=== PATIENT | female | born 1985 | race Two or more races ===

== ENCOUNTER 2018-02-10 19:17 | Inpatient (IN) | payer SELFPAY ==
[~2018-02-10] VITALS: Ht 154.9 cm; Wt 56.7 kg
[2018-02-10] MEDS ORDERED: ONDANSETRON PF 4 MG/2 ML VIAL. IV ONE (20:15)
[2018-02-10] MEDS ORDERED: IV NORMAL SALINE 1000ML BAG 1,000 ML IV ONE (20:15)
[2018-02-10] MEDS ORDERED: MORPHINE SULFATE 4 MG/ML DISP.SYRIN. IV ONE ×2 (20:15→21:30)
[2018-02-10 20:23] LABS: BASO % 0 % (0-3); EOS % 0 % (0-3); HEMATOCRIT 43.7 % (36.0-47.0); LYMPH # 1.2 x10^3/uL (1.0-4.8); LYMPH % 8 % (24-48); MEAN CORPUSCULAR HEMOGLOBIN 30 pg (25-35); MEAN CORPUSCULAR HGB CONC 34 g/dL (31-37); MEAN CORPUSCULAR VOLUME 87 fL (79-100); MONO # 0.8 x10^3/uL (0.0-1.1); MONO % 6 % (0-9); NEUT # 12.2 x10^3uL (1.8-7.7); NEUT % 86 % (31-73); PLATELET COUNT 173 x10^3/uL (140-400); RED BLOOD COUNT 5.01 x10^6/uL (3.50-5.40); RED CELL DISTRIBUTION WIDTH 13.6 % (11.5-14.5); WHITE BLOOD COUNT 14.2 x10^3/uL (4.0-11.0)
[2018-02-10 20:23] LABS: BILIRUBIN,URINE SMALL (NEG); CLARITY,URINE CLOUDY; COLOR,URINE AMBER; NITRITE,URINE POSITIVE (NEG); PH,URINE 6.5; PROTEIN,URINE 30 mg/dL (NEG-TRACE)
[2018-02-10 20:35] LABS: CALCIUM 9.5 mg/dL (8.5-10.1); CREATININE 0.8 mg/dL (0.6-1.0); GFR 83.1; POTASSIUM 3.8 mmol/L (3.5-5.1)
[2018-02-10 20:35] LABS: BACTERIA,URINE MANY /HPF (0-FEW); RBC,URINE 0 /HPF (0-2); SQUAMOUS EPITHELIAL CELL,UR MANY /LPF; WBC,URINE >40 /HPF (0-4)
[2018-02-10 20:41] LABS: ALBUMIN 4.5 g/dL (3.4-5.0); ALBUMIN/GLOBULIN RATIO 1.1 (1.0-1.7); TOTAL BILIRUBIN 1.2 mg/dL (0.2-1.0); TOTAL PROTEIN 8.7 g/dL (6.4-8.2)
[2018-02-10 20:59] LABS: % BANDS 4 % (0-9); % LYMPHS 12 % (24-48); % MONOS 5 % (0-10); % SEGS 79 % (35-66); PLT ESTIMATE ADEQUATE (ADEQUATE)
--- NOTE | 2018-02-10 21:09 | RAD ---
CT scan of the abdomen and pelvis without contrast 02/10/2018 CLINICAL HISTORY: Right flank pain for 4 days. TECHNIQUE: Unenhanced, contiguous, 2 mm axial sections were obtained through the abdomen and pelvis. One or more of the following individualized dose reduction techniques were utilized for this study: 1. Automated exposure control. 2. Adjustment of the mA and/or kV according to patient size. 3. Use of iterative reconstruction technique. FINDINGS: Comparison study is dated 07/14/2015. Images through the lung bases are within normal limits. The liver, spleen, pancreas, and adrenal glands are within normal limits. A 2 mm nonobstructing calculus is seen involving the lower pole of the right kidney. No focal abnormality of the left kidney is seen. There is no evidence of obstruction of either collecting system. Increased density is seen within the fat surrounding the inferior aspect of the right kidney. This is a nonspecific finding. It can be seen with recently relieved obstruction of the right collecting system or could also be seen with pyelonephritis. Clinical correlation is recommended. No abnormal fluid collection is seen to suggest evidence of an abscess. The abdominal aorta tapers normally. The gallbladder is well-distended. No free fluid or free air is seen within the abdomen. There is no evidence of bowel obstruction. Air and stool seen throughout the colon. The appendix is well-visualized and is within normal limits. Images through the pelvis demonstrate the urinary bladder distended with urine. No adnexal mass is seen. A small amount of free fluid is seen within the pelvis. The osseous structures are unchanged. IMPRESSION: 1. Increased density is seen within the fat adjacent to the inferior aspect of the right kidney. This is a nonspecific finding. It could be seen with recently relieved obstruction of the right collecting system or could also be seen with pyelonephritis. Clinical correlation is recommended. 2. Small amount of free fluid is seen within the pelvis. Electronically signed by: Tera Ramirez MD (02/10/2018 9:05 PM) [facility]
[2018-02-10] MEDS ORDERED: KETOROLAC 30 MG/ML VIAL. IV ONE (22:15)
[2018-02-10] MEDS ORDERED: ONDANSETRON PF 4 MG/2 ML VIAL. IV PRN (22:30)
--- NOTE | 2018-02-10 23:02 | PHYS DOC ---
Past Medical History Past Medical History: No Pertinent History Past Surgical History: No Surgical History Alcohol Use: None Drug Use: None Adult General Chief Complaint Chief Complaint: ABDOMINAL PAIN HPI HPI Patient is a 32 year old splenic female who presents to the emergency Department today with complaints of right lower quadrant abdominal pain with increased urinary frequency nausea, vomiting, and diarrhea for the last 4 days. She also reports pain with urination. She denies any fever, back pain, or injury. She states that her pain increases when she bears weight on her right leg. Patient also reports having blood in her urine for the last 4 days. She denies any history of kidney stones. Currently the patient rates her pain as a 10 out of 10 on the pain scale, states she has not taken anything for her pain. Her last menstrual period was on January 24, 2018, she denies any known . Patient denies any vaginal itching or odor. She states she has had some light white vaginal discharge recently. She denies any medical history or surgical history. She states that she is not allergic to any medications. Review of Systems Review of Systems Constitutional: Denies fever or chills reports malaise [] HENT: Denies nasal congestion, or sore throat [] Respiratory: Denies cough, wheezing, or shortness of breath [] Cardiovascular: Denies chest pain GI: Denies bloody stools; reports right lower quadrant abdominal pain, nausea, vomiting, or diarrhea for the last 4 days, states she has had at least 15 episodes of vomiting and diarrhea and last 24 hours [] : Reports dysuria and hematuria with increased urinary frequency and right flank pain, reports light amount of white vaginal discharge denies any odor or vaginal itching [] Musculoskeletal: Denies joint pain, reports right lower back pain and body aches [] Integument: Denies rash or skin lesions [] Neurologic: Denies headache, focal weakness or sensory changes [] All other systems were reviewed and found to be within normal limits, except as documented in this note. Current Medications Current Medications Current Medications Medications (Trade) Dose Ordered Sig/Tootie Start Time Stop Time Status Last Admin Dose Admin Ceftriaxone Sodium 50 ml @ 100 mls/hr 1X ONCE 02/10/18 21:30 02/10/18 21:59 DC 02/10/18 21:47 100 MLS/HR Ketorolac Tromethamine (Toradol) 30 mg 1X ONCE 02/10/18 22:15 02/10/18 22:16 DC 02/10/18 22:15 30 MG Morphine Sulfate (Morphine Sulfate) 4 mg 1X ONCE 02/10/18 21:30 02/10/18 21:31 DC 02/10/18 21:51 4 MG Ondansetron HCl (Zofran) 4 mg 1X ONCE 02/10/18 20:15 02/10/18 20:21 DC 02/10/18 20:24 4 MG Sodium Chloride 1,000 ml @ 1,000 mls/hr 1X ONCE 02/10/18 20:15 02/10/18 21:14 DC 02/10/18 20:24 1,000 MLS/HR Allergies Allergies Allergies Coded Allergies Type Severity Reaction Last Updated Verified No Known Drug Allergies 07/14/15 No Physical Exam Physical Exam Constitutional: Well developed, well nourished, moderate distress, non-toxic appearance. [] HENT: Normocephalic, atraumatic, bilateral external ears normal, no oral exudates, patient's lips and mucous membranes are noted to be dry in appearance , Nose normal. [] Eyes: PERRLA, , conjunctiva normal, no discharge. [] Neck: Normal range of motion,supple, no stridor. [] Cardiovascular:Heart rate regular rhythm, no murmur [] Lungs & Thorax: Bilateral breath sounds clear to auscultation [] Abdomen: Bowel sounds normal, soft, no masses, no pulsatile masses; right lower quadrant is tender to palpation; McBurney's point tenderness. [] Skin: Warm, dry, no erythema, no rash. Normal skin turgor[] Back: No bony tenderness, bilateral CVA tenderness. [] Extremities: No tenderness, no cyanosis, no clubbing, ROM intact, no edema. [] Neurologic: Alert and oriented X 3, normal motor function, normal sensory function, no focal deficits noted. [] Psychologic: Affect normal, judgement normal, mood normal. [] Current Patient Data Vital Signs Vital Signs Date Time Temp Pulse Resp B/P (MAP) Pulse Ox O2 Delivery O2 Flow Rate FiO2 02/10/18 21:51 16 99 Room Air 02/10/18 19:58 99.3 88 103/58 (73) 99.3 Lab Values Laboratory Tests Test 02/10/18 19:25 02/10/18 20:13 8/10/18 20:16 Urine Collection Type Unknown Urine Color Kesha Urine Clarity Cloudy Urine pH 6.5 Urine Specific [place] >=1.030 Urine Protein 30 mg/dL (NEG-TRACE) Urine Glucose (UA) Negative mg/dL (NEG) Urine Ketones (Stick) 40 mg/dL (NEG) Urine Blood Negative (NEG) Urine Nitrite Positive (NEG) Urine Bilirubin Small (NEG) Urine Urobilinogen Dipstick 1.0 mg/dL (0.2 mg/dL) Urine Leukocyte Esterase Moderate (NEG) Urine RBC 0 /HPF (0-2) Urine WBC >40 /HPF (0-4) Urine Squamous Epithelial Cells Many /LPF Urine Bacteria Many /HPF (0-FEW) Urine Mucus Marked /LPF White Blood Count 14.2 x10^3/uL (4.0-11.0) H Red Blood Count 5.01 x10^6/uL (3.50-5.40) Hemoglobin 15.0 g/dL (12.0-15.5) Hematocrit 43.7 % (36.0-47.0) Mean Corpuscular Volume 87 fL (79-100) Mean Corpuscular Hemoglobin 30 pg (25-35) Mean Corpuscular Hemoglobin Concent 34 g/dL (31-37) Red Cell Distribution Width 13.6 % (11.5-14.5) Platelet Count 173 x10^3/uL (140-400) Neutrophils (%) (Auto) 86 % (31-73) H Lymphocytes (%) (Auto) 8 % (24-48) L Monocytes (%) (Auto) 6 % (0-9) Eosinophils (%) (Auto) 0 % (0-3) Basophils (%) (Auto) 0 % (0-3) Neutrophils # (Auto) 12.2 x10^3uL (1.8-7.7) H Lymphocytes # (Auto) 1.2 x10^3/uL (1.0-4.8) Monocytes # (Auto) 0.8 x10^3/uL (0.0-1.1) Eosinophils # (Auto) 0.0 x10^3/uL (0.0-0.7) Basophils # (Auto) 0.0 x10^3/uL (0.0-0.2) Segmented Neutrophils % 79 % (35-66) H Band Neutrophils % 4 % (0-9) Lymphocytes % 12 % (24-48) L Monocytes % 5 % (0-10) Platelet Estimate Adequate (ADEQUATE) Sodium Level 136 mmol/L (136-145) Potassium Level 3.8 mmol/L (3.5-5.1) Chloride Level 100 mmol/L (98-107) Carbon Dioxide Level 24 mmol/L (21-32) Anion Gap 12 (6-14) Blood Urea Nitrogen 11 mg/dL (7-20) Creatinine 0.8 mg/dL (0.6-1.0) Estimated GFR (Cockcroft-Gault) 83.1 BUN/Creatinine Ratio 14 (6-20) Glucose Level 112 mg/dL (70-99) H Calcium Level 9.5 mg/dL (8.5-10.1) Total Bilirubin 1.2 mg/dL (0.2-1.0) H Aspartate Amino Transferase (AST) 22 U/L (15-37) Alanine Aminotransferase (ALT) 25 U/L (14-59) Alkaline Phosphatase 72 U/L (46-116) Total Protein 8.7 g/dL (6.4-8.2) H Albumin 4.5 g/dL (3.4-5.0) Albumin/Globulin Ratio 1.1 (1.0-1.7) POC Urine HCG, Qualitative Hcg negative (Negative) Laboratory Tests 02/10/18 20:13 Laboratory Tests 02/10/18 20:13 EKG EKG [] Radiology/Procedures Radiology/Procedures [] Course & Med Decision Making Course & Med Decision Making Pertinent Labs and Imaging studies reviewed. (See chart for details) Patient is a 32-year-old female who presented to the emergency room with complaints of right lower quadrant pain, nausea, vomiting, diarrhea for the last 4 days. VSS, her urine revealed a significant urinary tract infection with nitrates, a moderate amount of leukocyte esterase, many bacteria, and marked mucus. Urine was negative. Lab work revealed a white blood cell count of 14.2, BUN 11 and a creatinine of 0.8, patient's blood glucose was 112 with lab work. Her bilirubin was slightly elevated at 1.2. Patient was given a total of 8 mg of morphine, 4 mg of Zofran, and 30 mg of Toradol IV for relief of her symptoms. She also received 1 L of normal saline and 1 g of Rocephin IV. Patient states that her nausea is improved, however, the pain medication wears off quickly and she does not feel well enough to take care of herself at home. Dr. Reed was consulted, the decision to admit the patient for acute pyelonephritis was made and admission orders were written. Dragon Disclaimer Dragon Disclaimer This electronic medical record was generated, in whole or in part, using a voice recognition dictation system. Departure Departure Impression: Primary Impression: Acute pyelonephritis Disposition: ADMITTED INPATIENT Admitting Physician: Xie. Handy Condition: STABLE Referrals: NO PCP (PCP) JANNETTE MARINELLI [employer] Feb 10, 2018 23:02
[2018-02-11] MEDS: IV NORMAL SALINE 1000ML BAG 1,000 ML IV SCH ×2 (00:31→15:19)
[2018-02-11 03:00] VITALS: BP 102/56
[2018-02-11] MEDS: MORPHINE SULFATE 4 MG/ML DISP.SYRIN. IV PRN ×2 (04:19→08:18)
[2018-02-11 07:00] VITALS: BP 99/63
[2018-02-11] MEDS ORDERED: hydrALAZINE 20 MG/ML VIAL. IVP PRN (10:45)
[2018-02-11 11:00] VITALS: BP 101/56
[2018-02-11] MEDS: ONDANSETRON PF 4 MG/2 ML VIAL. IV PRN (12:10)
[2018-02-11] MEDS: MORPHINE SULFATE 2 MG/ML DISP.SYRIN. IV PRN ×2 (12:11→19:47)
[2018-02-11] MEDS: ACETAMINOPHEN 325 MG TABLET. PO PRN (12:24)
--- NOTE | 2018-02-11 14:25 | RAD ---
Bilateral lower extremity venous ultrasound, 02/11/2018: History: Right leg pain Duplex evaluation of the deep veins in the lower extremities was performed including grayscale, color-flow and spectral Doppler analysis. The femoral and popliteal veins demonstrate normal compressibility and normal responses to distal augmentation maneuvers. Color imaging of those vessels shows no evidence of intraluminal clot. The visualized deep veins in both calves are patent. IMPRESSION: There is no sonographic evidence of deep vein thrombosis in either lower extremity. Electronically signed by: Arnav Todd MD (02/11/2018 2:21 PM) [facility]
[2018-02-11 15:00] VITALS: BP 110/62
--- NOTE | 2018-02-11 15:12 | PDOC1 ---
History and Physical Date of Admission Date of Admission 02/11/18 Identification/Chief Complaint Chief Complaint abd pain Source Source: Chart review, Patient History of Present Illness History of Present Illness Patient is a 32 year old splenic female who presents to the emergency Department today with complaints of right lower quadrant abdominal pain for 4 ds. Pt denies h/o kidney stone or UTI. said fever T 103. ER 100.3 Temp. Pt said she has rt upper abd pain, radiating to rt groin, with dysuria, dark urine, also had N/V, bl flank pain. The pain is achy, 10/10, constant. NO cough, sob. She also c/o rt leg pain, wo swelling. Her last menstrual period was on January 24, 2018, she denies any known . She states she has had some light white vaginal discharge recently. She denies any medical history or surgical history. She states that she is not allergic to any medications. Past Medical History Past Medical History none Past Surgical History Past Surgical History: No pertinent history Family History Family History: Hypertension Social History Smoke: No ALCOHOL: none Drugs: None Current Problem List Problem List Problems Medical Problems: (1) Acute pyelonephritis Status: Acute Current Medications Current Medications Current Medications Medications (Trade) Dose Ordered Sig/Tootie Start Time Stop Time Status Last Admin Dose Admin Acetaminophen (Tylenol) 650 mg PRN Q6HRS PRN 02/11/18 10:45 02/11/18 12:24 650 MG Ceftriaxone Sodium 1 gm/ Dextrose 50 ml @ 100 mls/hr Q24H 02/11/18 10:45 UNV Ceftriaxone Sodium (Rocephin) 1 gm Q24H 02/11/18 21:00 Docusate Sodium (Colace) 100 mg PRN DAILY PRN 02/11/18 10:45 Hydralazine HCl (Apresoline Inj) 10 mg PRN Q4HRS PRN 02/11/18 10:45 Ketorolac Tromethamine (Toradol) 30 mg 1X ONCE 02/10/18 22:15 02/10/18 22:16 DC 02/10/18 22:15 30 MG Morphine Sulfate (Morphine Sulfate) 2 mg PRN Q2HR PRN 02/11/18 10:45 02/11/18 12:11 2 MG Ondansetron HCl (Zofran) 4 mg PRN Q6HRS PRN 02/11/18 10:45 02/11/18 12:10 4 MG Sodium Chloride 1,000 ml @ 75 mls/hr [id number] 02/11/18 00:30 02/11/18 00:31 75 MLS/HR Tramadol HCl (Ultram) 50 mg PRN Q6HRS PRN 02/11/18 10:45 Allergies Allergies Allergies Coded Allergies Type Severity Reaction Last Updated Verified No Known Drug Allergies 07/14/15 No ROS Review of System CONSTITUTIONAL: No fever or chills EYES: No recent changes SKIN: No rash or itching CARDIOVASCULAR: No chest pain, syncope, palpitations, or edema RESPIRATORY: No SOB or cough GASTROINTESTINAL: No nausea, vomiting or abdominal pain NEUROLOGICAL: No headaches or weakness ENDOCRINE: No cold or heat intolerance GENITOURINARY: No urgency or frequency of urination MUSCULOSKELETAL: No back pain or joint pain LYMPHATICS: No enlarged lymph nodes PSYCHIATRIC: No anxiety or depression Physical Exam Physical Exam GEN.: No apparent distress. Alert and oriented. HEENT: Head is normocephalic, atraumatic NECK: Supple. LUNGS: Clear to auscultation. HEART: RRR, S1, S2 present. Peripheral pulses intact ABDOMEN: Soft, Positive bowel sounds. diffuse abd pain, mainly right side, bl flank tenderness. EXTREMITIES: Without any cyanosis. NEUROLOGIC: Normal speech, normal tone PSYCHIATRIC: Normal affect, normal mood. SKIN: No ulcerations Vitals Vitals Vital Signs Date Time Temp Pulse Resp B/P (MAP) Pulse Ox O2 Delivery O2 Flow Rate FiO2 02/11/18 12:41 Room Air 02/11/18 11:00 98.8 86 18 101/56 (71) 100 98.8 Labs Labs Laboratory Tests Test 02/10/18 19:25 02/10/18 20:13 02/10/18 20:16 Urine Collection Type Unknown Urine Color Kesha Urine Clarity Cloudy Urine pH 6.5 Urine Specific [place] >=1.030 Urine Protein 30 mg/dL (NEG-TRACE) Urine Glucose (UA) Negative mg/dL (NEG) Urine Ketones (Stick) 40 mg/dL (NEG) Urine Blood Negative (NEG) Urine Nitrite Positive (NEG) Urine Bilirubin Small (NEG) Urine Urobilinogen Dipstick 1.0 mg/dL (0.2 mg/dL) Urine Leukocyte Esterase Moderate (NEG) Urine RBC 0 /HPF (0-2) Urine WBC >40 /HPF (0-4) Urine Squamous Epithelial Cells Many /LPF Urine Bacteria Many /HPF (0-FEW) Urine Mucus Marked /LPF White Blood Count 14.2 x10^3/uL (4.0-11.0) Red Blood Count 5.01 x10^6/uL (3.50-5.40) Hemoglobin 15.0 g/dL (12.0-15.5) Hematocrit 43.7 % (36.0-47.0) Mean Corpuscular Volume 87 fL (79-100) Mean Corpuscular Hemoglobin 30 pg (25-35) Mean Corpuscular Hemoglobin Concent 34 g/dL (31-37) Red Cell Distribution Width 13.6 % (11.5-14.5) Platelet Count 173 x10^3/uL (140-400) Neutrophils (%) (Auto) 86 % (31-73) Lymphocytes (%) (Auto) 8 % (24-48) Monocytes (%) (Auto) 6 % (0-9) Eosinophils (%) (Auto) 0 % (0-3) Basophils (%) (Auto) 0 % (0-3) Neutrophils # (Auto) 12.2 x10^3uL (1.8-7.7) Lymphocytes # (Auto) 1.2 x10^3/uL (1.0-4.8) Monocytes # (Auto) 0.8 x10^3/uL (0.0-1.1) Eosinophils # (Auto) 0.0 x10^3/uL (0.0-0.7) Basophils # (Auto) 0.0 x10^3/uL (0.0-0.2) Segmented Neutrophils % 79 % (35-66) Band Neutrophils % 4 % (0-9) Lymphocytes % 12 % (24-48) Monocytes % 5 % (0-10) Platelet Estimate Adequate (ADEQUATE) Sodium Level 136 mmol/L (136-145) Potassium Level 3.8 mmol/L (3.5-5.1) Chloride Level 100 mmol/L (98-107) Carbon Dioxide Level 24 mmol/L (21-32) Anion Gap 12 (6-14) Blood Urea Nitrogen 11 mg/dL (7-20) Creatinine 0.8 mg/dL (0.6-1.0) Estimated GFR (Cockcroft-Gault) 83.1 BUN/Creatinine Ratio 14 (6-20) Glucose Level 112 mg/dL (70-99) Calcium Level 9.5 mg/dL (8.5-10.1) Total Bilirubin 1.2 mg/dL (0.2-1.0) Aspartate Amino Transf (AST/SGOT) 22 U/L (15-37) Alanine Aminotransferase (ALT/SGPT) 25 U/L (14-59) Alkaline Phosphatase 72 U/L (46-116) Total Protein 8.7 g/dL (6.4-8.2) Albumin 4.5 g/dL (3.4-5.0) Albumin/Globulin Ratio 1.1 (1.0-1.7) Bedside Urine HCG, Qualitative Hcg negative (Negative) Laboratory Tests Test 02/10/18 19:25 02/10/18 20:13 02/10/18 20:16 Urine Collection Type Unknown Urine Color Kesha Urine Clarity Cloudy Urine pH 6.5 Urine Specific [place] >=1.030 Urine Protein 30 mg/dL (NEG-TRACE) Urine Glucose (UA) Negative mg/dL (NEG) Urine Ketones (Stick) 40 mg/dL (NEG) Urine Blood Negative (NEG) Urine Nitrite Positive (NEG) Urine Bilirubin Small (NEG) Urine Urobilinogen Dipstick 1.0 mg/dL (0.2 mg/dL) Urine Leukocyte Esterase Moderate (NEG) Urine RBC 0 /HPF (0-2) Urine WBC >40 /HPF (0-4) Urine Squamous Epithelial Cells Many /LPF Urine Bacteria Many /HPF (0-FEW) Urine Mucus Marked /LPF White Blood Count 14.2 x10^3/uL (4.0-11.0) Red Blood Count 5.01 x10^6/uL (3.50-5.40) Hemoglobin 15.0 g/dL (12.0-15.5) Hematocrit 43.7 % (36.0-47.0) Mean Corpuscular Volume 87 fL (79-100) Mean Corpuscular Hemoglobin 30 pg (25-35) Mean Corpuscular Hemoglobin Concent 34 g/dL (31-37) Red Cell Distribution Width 13.6 % (11.5-14.5) Platelet Count 173 x10^3/uL (140-400) Neutrophils (%) (Auto) 86 % (31-73) Lymphocytes (%) (Auto) 8 % (24-48) Monocytes (%) (Auto) 6 % (0-9) Eosinophils (%) (Auto) 0 % (0-3) Basophils (%) (Auto) 0 % (0-3) Neutrophils # (Auto) 12.2 x10^3uL (1.8-7.7) Lymphocytes # (Auto) 1.2 x10^3/uL (1.0-4.8) Monocytes # (Auto) 0.8 x10^3/uL (0.0-1.1) Eosinophils # (Auto) 0.0 x10^3/uL (0.0-0.7) Basophils # (Auto) 0.0 x10^3/uL (0.0-0.2) Segmented Neutrophils % 79 % (35-66) Band Neutrophils % 4 % (0-9) Lymphocytes % 12 % (24-48) Monocytes % 5 % (0-10) Platelet Estimate Adequate (ADEQUATE) Sodium Level 136 mmol/L (136-145) Potassium Level 3.8 mmol/L (3.5-5.1) Chloride Level 100 mmol/L (98-107) Carbon Dioxide Level 24 mmol/L (21-32) Anion Gap 12 (6-14) Blood Urea Nitrogen 11 mg/dL (7-20) Creatinine 0.8 mg/dL (0.6-1.0) Estimated GFR (Cockcroft-Gault) 83.1 BUN/Creatinine Ratio 14 (6-20) Glucose Level 112 mg/dL (70-99) Calcium Level 9.5 mg/dL (8.5-10.1) Total Bilirubin 1.2 mg/dL (0.2-1.0) Aspartate Amino Transf (AST/SGOT) 22 U/L (15-37) Alanine Aminotransferase (ALT/SGPT) 25 U/L (14-59) Alkaline Phosphatase 72 U/L (46-116) Total Protein 8.7 g/dL (6.4-8.2) Albumin 4.5 g/dL (3.4-5.0) Albumin/Globulin Ratio 1.1 (1.0-1.7) Bedside Urine HCG, Qualitative Hcg negative (Negative) VTE Prophylaxis Ordered VTE Prophylaxis Devices: Yes VTE Pharmacological Prophylaxi: Yes Assessment/Plan Assessment/Plan abd pain, acute pyelonephritis SIRS plan: ceftriaxone, fu ucx ivf pain control dvt ppx US rt leg neg DVT. JAM FLORES MD Feb 11, 2018 15:12
[2018-02-11] MEDS: traMADol 50 MG TABLET PO PRN ×2 (15:20→22:21)
[2018-02-11] MEDS: ENOXAPARIN 40 MG/0.4 ML SYRINGE. SQ SCH (16:09)
[2018-02-11 19:00] VITALS: BP 111/62
[2018-02-11] MEDS: cefTRIAXone IV Push 1 GM VIAL. IVP SCH (22:00)
[2018-02-11 23:00] VITALS: BP 100/58
[2018-02-12] MEDS: ACETAMINOPHEN 325 MG TABLET. PO PRN (00:44)
[2018-02-12 03:00] VITALS: BP 91/56
[2018-02-12] MEDS: IV NORMAL SALINE 1000ML BAG 1,000 ML IV SCH ×2 (03:17→17:01)
[2018-02-12 05:42] LABS: CALCIUM 7.6 mg/dL (8.5-10.1); CREATININE 0.6 mg/dL (0.6-1.0); GFR 115.9; POTASSIUM 3.4 mmol/L (3.5-5.1)
[2018-02-12] MEDS: traMADol 50 MG TABLET PO PRN ×3 (06:11→20:17)
[2018-02-12 06:19] LABS: BASO % 0 % (0-3); EOS % 0 % (0-3); LYMPH # 1.8 x10^3/uL (1.0-4.8); LYMPH % 16 % (24-48); MEAN CORPUSCULAR HEMOGLOBIN 29 pg (25-35); MEAN CORPUSCULAR HGB CONC 33 g/dL (31-37); MEAN CORPUSCULAR VOLUME 88 fL (79-100); MONO % 8 % (0-9); NEUT # 8.9 x10^3uL (1.8-7.7); NEUT % 76 % (31-73); PLATELET COUNT 142 x10^3/uL (140-400); RED BLOOD COUNT 4.07 x10^6/uL (3.50-5.40); RED CELL DISTRIBUTION WIDTH 13.7 % (11.5-14.5); WHITE BLOOD COUNT 11.8 x10^3/uL (4.0-11.0)
[2018-02-12 07:50] VITALS: BP 87/57
[2018-02-12] MEDS: ONDANSETRON PF 4 MG/2 ML VIAL. IV PRN (09:55)
[2018-02-12] MEDS: HYDROcodone/APAP 5/325MG 1 TAB TABLET PO PRN ×3 (09:55→22:27)
[2018-02-12 11:18] VITALS: BP 93/53
[2018-02-12] MEDS ORDERED: POTASSIUM CHLORIDE 20 MEQ TABLET.ER. PO ONE (13:00)
--- NOTE | 2018-02-12 14:58 | PDOC ---
PROGRESS NOTES Chief Complaint Chief Complaint abd pain, acute pyelonephritis SIRS hypokalemia plan: ceftriaxone, fu ucx ivf pain control dvt ppx replete K US rt leg neg DVT. plan dc tmr History of Present Illness History of Present Illness t 100.8 last night abd pain , dysuria better wbc better Vitals Vitals Vital Signs Date Time Temp Pulse Resp B/P (MAP) Pulse Ox O2 Delivery O2 Flow Rate FiO2 02/12/18 13:32 Room Air 02/12/18 11:18 98.2 76 93/53 (66) 100 98.2 02/12/18 07:50 18 Physical Exam General: Alert, Oriented X3, Cooperative Heart: Regular rate, Normal S1, Normal S2 Lungs: Clear Abdomen: Normal bowel sounds, Soft, Other (right side mild tenderness) Extremities: No clubbing, No cyanosis Skin: No rashes, No breakdown Labs LABS Laboratory Tests Test 02/12/18 04:50 White Blood Count 11.8 x10^3/uL (4.0-11.0) Red Blood Count 4.07 x10^6/uL (3.50-5.40) Hemoglobin 12.0 g/dL (12.0-15.5) Hematocrit 36.0 % (36.0-47.0) Mean Corpuscular Volume 88 fL (79-100) Mean Corpuscular Hemoglobin 29 pg (25-35) Mean Corpuscular Hemoglobin Concent 33 g/dL (31-37) Red Cell Distribution Width 13.7 % (11.5-14.5) Platelet Count 142 x10^3/uL (140-400) Neutrophils (%) (Auto) 76 % (31-73) Lymphocytes (%) (Auto) 16 % (24-48) Monocytes (%) (Auto) 8 % (0-9) Eosinophils (%) (Auto) 0 % (0-3) Basophils (%) (Auto) 0 % (0-3) Neutrophils # (Auto) 8.9 x10^3uL (1.8-7.7) Lymphocytes # (Auto) 1.8 x10^3/uL (1.0-4.8) Monocytes # (Auto) 1.0 x10^3/uL (0.0-1.1) Eosinophils # (Auto) 0.0 x10^3/uL (0.0-0.7) Basophils # (Auto) 0.0 x10^3/uL (0.0-0.2) Sodium Level 134 mmol/L (136-145) Potassium Level 3.4 mmol/L (3.5-5.1) Chloride Level 105 mmol/L (98-107) Carbon Dioxide Level 20 mmol/L (21-32) Anion Gap 9 (6-14) Blood Urea Nitrogen 5 mg/dL (7-20) Creatinine 0.6 mg/dL (0.6-1.0) Estimated GFR (Cockcroft-Gault) 115.9 Glucose Level 112 mg/dL (70-99) Calcium Level 7.6 mg/dL (8.5-10.1) Assessment and Plan Assessmemt and Plan Problems Medical Problems: (1) Acute pyelonephritis Status: Acute Comment Review of Relevant I have reviewed the following items evan (where applicable) has been applied. Labs Laboratory Tests Test 02/10/18 19:25 02/10/18 20:13 02/10/18 20:16 02/12/18 04:50 Urine Collection Type Unknown Urine Color Kesha Urine Clarity Cloudy Urine pH 6.5 Urine Specific [place] >=1.030 Urine Protein 30 mg/dL (NEG-TRACE) Urine Glucose (UA) Negative mg/dL (NEG) Urine Ketones (Stick) 40 mg/dL (NEG) Urine Blood Negative (NEG) Urine Nitrite Positive (NEG) Urine Bilirubin Small (NEG) Urine Urobilinogen Dipstick 1.0 mg/dL (0.2 mg/dL) Urine Leukocyte Esterase Moderate (NEG) Urine RBC 0 /HPF (0-2) Urine WBC >40 /HPF (0-4) Urine Squamous Epithelial Cells Many /LPF Urine Bacteria Many /HPF (0-FEW) Urine Mucus Marked /LPF White Blood Count 14.2 x10^3/uL (4.0-11.0) 11.8 x10^3/uL (4.0-11.0) Red Blood Count 5.01 x10^6/uL (3.50-5.40) 4.07 x10^6/uL (3.50-5.40) Hemoglobin 15.0 g/dL (12.0-15.5) 12.0 g/dL (12.0-15.5) Hematocrit 43.7 % (36.0-47.0) 36.0 % (36.0-47.0) Mean Corpuscular Volume 87 fL (79-100) 88 fL (79-100) Mean Corpuscular Hemoglobin 30 pg (25-35) 29 pg (25-35) Mean Corpuscular Hemoglobin Concent 34 g/dL (31-37) 33 g/dL (31-37) Red Cell Distribution Width 13.6 % (11.5-14.5) 13.7 % (11.5-14.5) Platelet Count 173 x10^3/uL (140-400) 142 x10^3/uL (140-400) Neutrophils (%) (Auto) 86 % (31-73) 76 % (31-73) Lymphocytes (%) (Auto) 8 % (24-48) 16 % (24-48) Monocytes (%) (Auto) 6 % (0-9) 8 % (0-9) Eosinophils (%) (Auto) 0 % (0-3) 0 % (0-3) Basophils (%) (Auto) 0 % (0-3) 0 % (0-3) Neutrophils # (Auto) 12.2 x10^3uL (1.8-7.7) 8.9 x10^3uL (1.8-7.7) Lymphocytes # (Auto) 1.2 x10^3/uL (1.0-4.8) 1.8 x10^3/uL (1.0-4.8) Monocytes # (Auto) 0.8 x10^3/uL (0.0-1.1) 1.0 x10^3/uL (0.0-1.1) Eosinophils # (Auto) 0.0 x10^3/uL (0.0-0.7) 0.0 x10^3/uL (0.0-0.7) Basophils # (Auto) 0.0 x10^3/uL (0.0-0.2) 0.0 x10^3/uL (0.0-0.2) Segmented Neutrophils % 79 % (35-66) Band Neutrophils % 4 % (0-9) Lymphocytes % 12 % (24-48) Monocytes % 5 % (0-10) Platelet Estimate Adequate (ADEQUATE) Sodium Level 136 mmol/L (136-145) 134 mmol/L (136-145) Potassium Level 3.8 mmol/L (3.5-5.1) 3.4 mmol/L (3.5-5.1) Chloride Level 100 mmol/L (98-107) 105 mmol/L (98-107) Carbon Dioxide Level 24 mmol/L (21-32) 20 mmol/L (21-32) Anion Gap 12 (6-14) 9 (6-14) Blood Urea Nitrogen 11 mg/dL (7-20) 5 mg/dL (7-20) Creatinine 0.8 mg/dL (0.6-1.0) 0.6 mg/dL (0.6-1.0) Estimated GFR (Cockcroft-Gault) 83.1 115.9 BUN/Creatinine Ratio 14 (6-20) Glucose Level 112 mg/dL (70-99) 112 mg/dL (70-99) Calcium Level 9.5 mg/dL (8.5-10.1) 7.6 mg/dL (8.5-10.1) Total Bilirubin 1.2 mg/dL (0.2-1.0) Aspartate Amino Transf (AST/SGOT) 22 U/L (15-37) Alanine Aminotransferase (ALT/SGPT) 25 U/L (14-59) Alkaline Phosphatase 72 U/L (46-116) Total Protein 8.7 g/dL (6.4-8.2) Albumin 4.5 g/dL (3.4-5.0) Albumin/Globulin Ratio 1.1 (1.0-1.7) Bedside Urine HCG, Qualitative Hcg negative (Negative) Laboratory Tests Test 02/12/18 04:50 White Blood Count 11.8 x10^3/uL (4.0-11.0) Red Blood Count 4.07 x10^6/uL (3.50-5.40) Hemoglobin 12.0 g/dL (12.0-15.5) Hematocrit 36.0 % (36.0-47.0) Mean Corpuscular Volume 88 fL (79-100) Mean Corpuscular Hemoglobin 29 pg (25-35) Mean Corpuscular Hemoglobin Concent 33 g/dL (31-37) Red Cell Distribution Width 13.7 % (11.5-14.5) Platelet Count 142 x10^3/uL (140-400) Neutrophils (%) (Auto) 76 % (31-73) Lymphocytes (%) (Auto) 16 % (24-48) Monocytes (%) (Auto) 8 % (0-9) Eosinophils (%) (Auto) 0 % (0-3) Basophils (%) (Auto) 0 % (0-3) Neutrophils # (Auto) 8.9 x10^3uL (1.8-7.7) Lymphocytes # (Auto) 1.8 x10^3/uL (1.0-4.8) Monocytes # (Auto) 1.0 x10^3/uL (0.0-1.1) Eosinophils # (Auto) 0.0 x10^3/uL (0.0-0.7) Basophils # (Auto) 0.0 x10^3/uL (0.0-0.2) Sodium Level 134 mmol/L (136-145) Potassium Level 3.4 mmol/L (3.5-5.1) Chloride Level 105 mmol/L (98-107) Carbon Dioxide Level 20 mmol/L (21-32) Anion Gap 9 (6-14) Blood Urea Nitrogen 5 mg/dL (7-20) Creatinine 0.6 mg/dL (0.6-1.0) Estimated GFR (Cockcroft-Gault) 115.9 Glucose Level 112 mg/dL (70-99) Calcium Level 7.6 mg/dL (8.5-10.1) Medications Current Medications Ondansetron HCl (Zofran) 4 mg 1X ONCE IV Last administered on 02/10/18at 20:24 ; Start 02/10/18 at 20:15; Stop 02/10/18 at 20:21; Status DC Sodium Chloride 1,000 ml @ 1,000 mls/hr 1X ONCE IV Last administered on at 20:24; Start 02/10/18 at 20:15; Stop 02/10/18 at 21:14; Status DC Morphine Sulfate (Morphine Sulfate) 4 mg 1X ONCE IV Last administered on at 20:25; Start 02/10/18 at 20:15; Stop 02/10/18 at 20:21; Status DC Ceftriaxone Sodium 50 ml @ 100 mls/hr 1X ONCE IV Last administered on at 21:47; Start 02/10/18 at 21:30; Stop 02/10/18 at 21:59; Status DC Morphine Sulfate (Morphine Sulfate) 4 mg 1X ONCE IV Last administered on at 21:51; Start 02/10/18 at 21:30; Stop 02/10/18 at 21:31; Status DC Ketorolac Tromethamine (Toradol) 30 mg 1X ONCE IV Last administered on at 22:15; Start 02/10/18 at 22:15; Stop 02/10/18 at 22:16; Status DC Ondansetron HCl (Zofran) 4 mg PRN Q8HRS PRN IV NAUSEA/VOMITING; Start 02/10/18 at 22:30; Stop 02/11/18 at 10:48; Status DC Morphine Sulfate (Morphine Sulfate) 4 mg PRN Q2HR PRN IV PAIN Last administered on 02/11/18at 08:18; Start 02/10/18 at 22:30; Stop 02/11/18 at 10:48 ; Status DC Sodium Chloride 1,000 ml @ 75 mls/hr [id number] IV Last administered on 03:17; Start 02/11/18 at 00:30 Acetaminophen (Tylenol) 650 mg PRN Q6HRS PRN PO FEVER Last administered on 02/12at 00:44; Start 02/11/18 at 10:45 Ondansetron HCl (Zofran) 4 mg PRN Q6HRS PRN IV NAUSEA/VOMITING Last administered on 02/12/18at 09:55; Start 02/11/18 at 10:45 Morphine Sulfate (Morphine Sulfate) 2 mg PRN Q2HR PRN IV MODERATE TO SEVERE PAIN Last administered on 02/11/18at 19:47; Start 02/11/18 at 10:45 Tramadol HCl (Ultram) 50 mg PRN Q6HRS PRN PO MILD TO MODERATE PAIN Last administered on 02/12/18at 13:32; Start 02/11/18 at 10:45 Hydralazine HCl (Apresoline Inj) 10 mg PRN Q4HRS PRN IVP ELEVATED BP, SEE COMMENTS; Start 02/11/18 at 10:45 Docusate Sodium (Colace) 100 mg PRN DAILY PRN PO CONSTIPATION; Start 02/11/18 at 10:45 Ceftriaxone Sodium 1 gm/ Dextrose 50 ml @ 100 mls/hr Q24H IV ; Start 02/11/18 at 10:45; Status UNV Ceftriaxone Sodium (Rocephin) 1 gm Q24H IVP Last administered on 02/11/18at 22: 00; Start 02/11/18 at 21:00 Enoxaparin Sodium (Lovenox 40mg Syringe) 40 mg Q24H SQ Last administered on 05/21at 16:09; Start 02/11/18 at 16:00 Acetaminophen/ Hydrocodone Bitart (Lortab 5/325) 1 tab PRN Q4HRS PRN PO SEVERE PAIN Last administered on 02/12/18at 09:55; Start 02/12/18 at 09:45 Potassium Chloride (Klor-Con) 40 meq 1X ONCE PO Last administered on at 13:31; Start 02/12/18 at 13:00; Stop 02/12/18 at 13:01; Status DC Lactobacillus Rhamnosus (Culturelle) 1 cap BID PO ; Start 02/12/18 at 21:00 Vitals/I & O Vital Sign - Last 24 Hours 02/11/18 02/11/18 02/11/18 02/11/18 15:00 15:20 19:00 19:47 Temp 98.2 98.6 98.2 98.6 Pulse 87 86 Resp 18 18 16 B/P (MAP) 110/62 (78) 111/62 (78) Pulse Ox 100 100 O2 Delivery Room Air Room Air Room Air Room Air 02/11/18 02/11/18 02/11/18 02/11/18 20:00 20:17 22:21 23:00 Temp 100.8 100.8 Pulse 102 Resp 16 16 20 B/P (MAP) 100/58 (72) Pulse Ox 97 O2 Delivery Room Air Room Air Room Air 02/12/18 02/12/18 02/12/18 02/12/18 03:00 06:11 07:11 07:50 Temp 97.7 98.0 97.7 98.0 Pulse 73 68 Resp 18 16 18 B/P (MAP) 91/56 (68) 87/57 (67) Pulse Ox 97 97 O2 Delivery Room Air Room Air Room Air Room Air 02/12/18 02/12/18 02/12/18 02/12/18 09:55 10:55 11:18 13:32 Temp 98.2 98.2 Pulse 76 B/P (MAP) 93/53 (66) Pulse Ox 100 O2 Delivery Room Air Room Air Room Air Room Air Intake and Output 02/11/18 02/11/18 02/12/18 15:00 23:00 07:00 Intake Total 50 ml Output Total 300 ml Balance -250 ml JAM FLORES MD Feb 12, 2018 14:58
[2018-02-12 15:00] VITALS: BP 92/60
[2018-02-12] MEDS: ENOXAPARIN 40 MG/0.4 ML SYRINGE. SQ SCH (17:01)
[2018-02-12 19:00] VITALS: BP 104/69
[2018-02-12] MEDS: LACTOBACILLUS RHAMNOSUS GG 1 CAPSULE. PO SCH (20:17)
[2018-02-12] MEDS: cefTRIAXone IV Push 1 GM VIAL. IVP SCH (20:18)
[2018-02-12 23:00] VITALS: BP 92/53
[2018-02-13] VITALS (7 sets, daily range): BP systolic 88–107; BP diastolic 55–71
[2018-02-13 03:57] LABS: BASO % 0 % (0-3); EOS # 0.1 x10^3/uL (0.0-0.7); EOS % 2 % (0-3); HEMATOCRIT 34.5 % (36.0-47.0); LYMPH # 2.5 x10^3/uL (1.0-4.8); LYMPH % 32 % (24-48); MEAN CORPUSCULAR HEMOGLOBIN 30 pg (25-35); MEAN CORPUSCULAR HGB CONC 35 g/dL (31-37); MEAN CORPUSCULAR VOLUME 88 fL (79-100); MONO # 0.6 x10^3/uL (0.0-1.1); MONO % 8 % (0-9); NEUT # 4.6 x10^3uL (1.8-7.7); NEUT % 59 % (31-73); PLATELET COUNT 153 x10^3/uL (140-400); RED BLOOD COUNT 3.93 x10^6/uL (3.50-5.40); RED CELL DISTRIBUTION WIDTH 13.6 % (11.5-14.5); WHITE BLOOD COUNT 7.9 x10^3/uL (4.0-11.0)
[2018-02-13] MEDS: HYDROcodone/APAP 5/325MG 1 TAB TABLET PO PRN ×2 (03:58→08:09)
[2018-02-13] MEDS: ONDANSETRON PF 4 MG/2 ML VIAL. IV PRN ×4 (04:00→22:29)
[2018-02-13 04:04] LABS: CALCIUM 8.3 mg/dL (8.5-10.1); CREATININE 0.5 mg/dL (0.6-1.0); POTASSIUM 3.6 mmol/L (3.5-5.1)
[2018-02-13] MEDS: IV NORMAL SALINE 1000ML BAG 1,000 ML IV SCH ×3 (04:05→20:35)
[2018-02-13] MEDS: DOCUSATE SODIUM 100 MG CAPSULE. PO PRN (08:09)
[2018-02-13] MEDS: LACTOBACILLUS RHAMNOSUS GG 1 CAPSULE. PO SCH ×2 (08:09→20:36)
--- NOTE | 2018-02-13 09:56 | PDOC ---
PROGRESS NOTES Chief Complaint Chief Complaint RUQ abd pain, acute pyelonephritis SIRS hypokalemia Well Distended gallbladder on CAT scan History of Present Illness History of Present Illness NO Fevers last night but did have a temperature 100.8 sat night Still minimal by mouth intake Still complaining of significant pain on that right upper quadrant side. Being treated for pyelonephritis, on Day 3 of IV abx I reviewed CAT scan, well distended GB on CT PLAN: Check US RUQ NPO for now INc IVF 100cc/hr COnsult GS nick RN Vitals Vitals Vital Signs Date Time Temp Pulse Resp B/P (MAP) Pulse Ox O2 Delivery O2 Flow Rate FiO2 02/13/18 09:15 99 Room Air 02/13/18 07:00 97.8 68 16 99/65 (76) 97.8 Physical Exam General: Alert, Oriented X3, Cooperative Heart: Regular rate, Normal S1, Normal S2 Lungs: Clear Abdomen: Normal bowel sounds, Soft, Other (right side mild tenderness) Extremities: No clubbing, No cyanosis Skin: No rashes, No breakdown Labs LABS Laboratory Tests Test 02/13/18 03:10 02/13/18 03:20 Sodium Level 138 mmol/L (136-145) Potassium Level 3.6 mmol/L (3.5-5.1) Chloride Level 107 mmol/L (98-107) Carbon Dioxide Level 24 mmol/L (21-32) Anion Gap 7 (6-14) Blood Urea Nitrogen 4 mg/dL (7-20) Creatinine 0.5 mg/dL (0.6-1.0) Estimated GFR (Cockcroft-Gault) 143.0 Glucose Level 101 mg/dL (70-99) Calcium Level 8.3 mg/dL (8.5-10.1) White Blood Count 7.9 x10^3/uL (4.0-11.0) Red Blood Count 3.93 x10^6/uL (3.50-5.40) Hemoglobin 12.0 g/dL (12.0-15.5) Hematocrit 34.5 % (36.0-47.0) Mean Corpuscular Volume 88 fL (79-100) Mean Corpuscular Hemoglobin 30 pg (25-35) Mean Corpuscular Hemoglobin Concent 35 g/dL (31-37) Red Cell Distribution Width 13.6 % (11.5-14.5) Platelet Count 153 x10^3/uL (140-400) Neutrophils (%) (Auto) 59 % (31-73) Lymphocytes (%) (Auto) 32 % (24-48) Monocytes (%) (Auto) 8 % (0-9) Eosinophils (%) (Auto) 2 % (0-3) Basophils (%) (Auto) 0 % (0-3) Neutrophils # (Auto) 4.6 x10^3uL (1.8-7.7) Lymphocytes # (Auto) 2.5 x10^3/uL (1.0-4.8) Monocytes # (Auto) 0.6 x10^3/uL (0.0-1.1) Eosinophils # (Auto) 0.1 x10^3/uL (0.0-0.7) Basophils # (Auto) 0.0 x10^3/uL (0.0-0.2) Review of Systems Review of Systems RUQ pain, poor by mouth, weak, the rest of 14 point systems reviewed negative Assessment and Plan Assessmemt and Plan Problems Medical Problems: (1) Acute pyelonephritis Status: Acute Comment Review of Relevant I have reviewed the following items evan (where applicable) has been applied. Labs Laboratory Tests Test 02/12/18 04:50 02/13/18 03:10 02/13/18 03:20 White Blood Count 11.8 x10^3/uL (4.0-11.0) 7.9 x10^3/uL (4.0-11.0) Red Blood Count 4.07 x10^6/uL (3.50-5.40) 3.93 x10^6/uL (3.50-5.40) Hemoglobin 12.0 g/dL (12.0-15.5) 12.0 g/dL (12.0-15.5) Hematocrit 36.0 % (36.0-47.0) 34.5 % (36.0-47.0) Mean Corpuscular Volume 88 fL (79-100) 88 fL (79-100) Mean Corpuscular Hemoglobin 29 pg (25-35) 30 pg (25-35) Mean Corpuscular Hemoglobin Concent 33 g/dL (31-37) 35 g/dL (31-37) Red Cell Distribution Width 13.7 % (11.5-14.5) 13.6 % (11.5-14.5) Platelet Count 142 x10^3/uL (140-400) 153 x10^3/uL (140-400) Neutrophils (%) (Auto) 76 % (31-73) 59 % (31-73) Lymphocytes (%) (Auto) 16 % (24-48) 32 % (24-48) Monocytes (%) (Auto) 8 % (0-9) 8 % (0-9) Eosinophils (%) (Auto) 0 % (0-3) 2 % (0-3) Basophils (%) (Auto) 0 % (0-3) 0 % (0-3) Neutrophils # (Auto) 8.9 x10^3uL (1.8-7.7) 4.6 x10^3uL (1.8-7.7) Lymphocytes # (Auto) 1.8 x10^3/uL (1.0-4.8) 2.5 x10^3/uL (1.0-4.8) Monocytes # (Auto) 1.0 x10^3/uL (0.0-1.1) 0.6 x10^3/uL (0.0-1.1) Eosinophils # (Auto) 0.0 x10^3/uL (0.0-0.7) 0.1 x10^3/uL (0.0-0.7) Basophils # (Auto) 0.0 x10^3/uL (0.0-0.2) 0.0 x10^3/uL (0.0-0.2) Sodium Level 134 mmol/L (136-145) 138 mmol/L (136-145) Potassium Level 3.4 mmol/L (3.5-5.1) 3.6 mmol/L (3.5-5.1) Chloride Level 105 mmol/L (98-107) 107 mmol/L (98-107) Carbon Dioxide Level 20 mmol/L (21-32) 24 mmol/L (21-32) Anion Gap 9 (6-14) 7 (6-14) Blood Urea Nitrogen 5 mg/dL (7-20) 4 mg/dL (7-20) Creatinine 0.6 mg/dL (0.6-1.0) 0.5 mg/dL (0.6-1.0) Estimated GFR (Cockcroft-Gault) 115.9 143.0 Glucose Level 112 mg/dL (70-99) 101 mg/dL (70-99) Calcium Level 7.6 mg/dL (8.5-10.1) 8.3 mg/dL (8.5-10.1) Laboratory Tests Test 02/13/18 03:10 02/13/18 03:20 Sodium Level 138 mmol/L (136-145) Potassium Level 3.6 mmol/L (3.5-5.1) Chloride Level 107 mmol/L (98-107) Carbon Dioxide Level 24 mmol/L (21-32) Anion Gap 7 (6-14) Blood Urea Nitrogen 4 mg/dL (7-20) Creatinine 0.5 mg/dL (0.6-1.0) Estimated GFR (Cockcroft-Gault) 143.0 Glucose Level 101 mg/dL (70-99) Calcium Level 8.3 mg/dL (8.5-10.1) White Blood Count 7.9 x10^3/uL (4.0-11.0) Red Blood Count 3.93 x10^6/uL (3.50-5.40) Hemoglobin 12.0 g/dL (12.0-15.5) Hematocrit 34.5 % (36.0-47.0) Mean Corpuscular Volume 88 fL (79-100) Mean Corpuscular Hemoglobin 30 pg (25-35) Mean Corpuscular Hemoglobin Concent 35 g/dL (31-37) Red Cell Distribution Width 13.6 % (11.5-14.5) Platelet Count 153 x10^3/uL (140-400) Neutrophils (%) (Auto) 59 % (31-73) Lymphocytes (%) (Auto) 32 % (24-48) Monocytes (%) (Auto) 8 % (0-9) Eosinophils (%) (Auto) 2 % (0-3) Basophils (%) (Auto) 0 % (0-3) Neutrophils # (Auto) 4.6 x10^3uL (1.8-7.7) Lymphocytes # (Auto) 2.5 x10^3/uL (1.0-4.8) Monocytes # (Auto) 0.6 x10^3/uL (0.0-1.1) Eosinophils # (Auto) 0.1 x10^3/uL (0.0-0.7) Basophils # (Auto) 0.0 x10^3/uL (0.0-0.2) Medications Current Medications Ondansetron HCl (Zofran) 4 mg 1X ONCE IV Last administered on 02/10/18at 20:24 ; Start 02/10/18 at 20:15; Stop 02/10/18 at 20:21; Status DC Sodium Chloride 1,000 ml @ 1,000 mls/hr 1X ONCE IV Last administered on at 20:24; Start 02/10/18 at 20:15; Stop 02/10/18 at 21:14; Status DC Morphine Sulfate (Morphine Sulfate) 4 mg 1X ONCE IV Last administered on at 20:25; Start 02/10/18 at 20:15; Stop 02/10/18 at 20:21; Status DC Ceftriaxone Sodium 50 ml @ 100 mls/hr 1X ONCE IV Last administered on at 21:47; Start 02/10/18 at 21:30; Stop 02/10/18 at 21:59; Status DC Morphine Sulfate (Morphine Sulfate) 4 mg 1X ONCE IV Last administered on at 21:51; Start 02/10/18 at 21:30; Stop 02/10/18 at 21:31; Status DC Ketorolac Tromethamine (Toradol) 30 mg 1X ONCE IV Last administered on at 22:15; Start 02/10/18 at 22:15; Stop 02/10/18 at 22:16; Status DC Ondansetron HCl (Zofran) 4 mg PRN Q8HRS PRN IV NAUSEA/VOMITING; Start 02/10/18 at 22:30; Stop 02/11/18 at 10:48; Status DC Morphine Sulfate (Morphine Sulfate) 4 mg PRN Q2HR PRN IV PAIN Last administered on 02/11/18at 08:18; Start 02/10/18 at 22:30; Stop 02/11/18 at 10:48 ; Status DC Sodium Chloride 1,000 ml @ 75 mls/hr [id number] IV Last administered on 04:05; Start 02/11/18 at 00:30 Acetaminophen (Tylenol) 650 mg PRN Q6HRS PRN PO FEVER Last administered on 02/12 00:44; Start 02/11/18 at 10:45 Ondansetron HCl (Zofran) 4 mg PRN Q6HRS PRN IV NAUSEA/VOMITING Last administered on 02/13/18 08:12; Start 02/11/18 at 10:45 Morphine Sulfate (Morphine Sulfate) 2 mg PRN Q2HR PRN IV MODERATE TO SEVERE PAIN Last administered on 02/11/18 19:47; Start 02/11/18 at 10:45 Tramadol HCl (Ultram) 50 mg PRN Q6HRS PRN PO MILD TO MODERATE PAIN Last administered on 02/12/18 20:17; Start 02/11/18 at 10:45 Hydralazine HCl (Apresoline Inj) 10 mg PRN Q4HRS PRN IVP ELEVATED BP, SEE COMMENTS; Start 02/11/18 at 10:45 Docusate Sodium (Colace) 100 mg PRN DAILY PRN PO CONSTIPATION Last administered on 02/13/18 08:09; Start 02/11/18 at 10:45 Ceftriaxone Sodium 1 gm/ Dextrose 50 ml @ 100 mls/hr Q24H IV ; Start 02/11/18 at 10:45; Status UNV Ceftriaxone Sodium (Rocephin) 1 gm Q24H IVP Last administered on 02/12/18 20: 18; Start 02/11/18 at 21:00 Enoxaparin Sodium (Lovenox 40mg Syringe) 40 mg Q24H SQ Last administered on 17:01; Start 02/11/18 at 16:00 Acetaminophen/ Hydrocodone Bitart (Lortab 5/325) 1 tab PRN Q4HRS PRN PO SEVERE PAIN Last administered on 02/13/18 08:09; Start 02/12/18 at 09:45 Potassium Chloride (Klor-Con) 40 meq 1X ONCE PO Last administered on 13:31; Start 02/12/18 at 13:00; Stop 02/12/18 at 13:01; Status DC Lactobacillus Rhamnosus (Culturelle) 1 cap BID PO Last administered on 8/13/ 18at 08:09; Start 02/12/18 at 21:00 Vitals/I & O Vital Sign - Last 24 Hours 02/12/18 02/12/18 02/12/18 02/12/18 09:55 11:18 13:32 15:00 Temp 98.2 98.0 98.2 98.0 Pulse 76 74 Resp 18 B/P (MAP) 93/53 (66) 92/60 (71) Pulse Ox 100 97 O2 Delivery Room Air Room Air Room Air Room Air 02/12/18 02/12/18 02/12/18 02/12/18 17:00 19:00 20:00 20:17 Temp 98.1 98.1 Pulse 68 Resp 16 20 B/P (MAP) 104/69 (81) Pulse Ox 99 99 O2 Delivery Room Air Room Air Room Air Room Air 02/12/18 02/12/18 02/12/18 02/13/18 21:17 22:27 23:00 03:00 Temp 97.9 97.9 97.9 97.9 Pulse 74 78 Resp 20 20 16 16 B/P (MAP) 92/53 (66) 90/56 (67) Pulse Ox 99 99 97 99 O2 Delivery Room Air Room Air Room Air Room Air 02/13/18 02/13/18 02/13/18 02/13/18 03:58 04:58 07:00 08:09 Temp 97.8 97.8 Pulse 68 Resp 20 20 16 B/P (MAP) 99/65 (76) Pulse Ox 99 100 99 O2 Delivery Room Air Room Air Room Air 02/13/18 09:15 Pulse Ox 99 O2 Delivery Room Air Intake and Output 02/12/18 02/12/18 02/13/18 15:00 23:00 07:00 Intake Total 0 ml Balance 0 ml MARIA ESTHER DEMPSEY MD Feb 13, 2018 09:56
[2018-02-13] MEDS ORDERED: HYDROcodone/APAP 10/325 1 TAB TABLET PO PRN (10:00)
[2018-02-13] MEDS ORDERED: fentaNYL PF VIAL 100 MCG/2 ML VIAL IV PRN (10:00)
--- NOTE | 2018-02-13 11:36 | PDOC2 ---
GUILLE MATTA CLIENT ADVISOR 02/13/18 1136: CONSULT Date of Consult Date of Consult DATE: 02/13/18 TIME: 11:29 Reason for Consult Reason for Consult: RUQ pain Referring Physician Referring Physician: Dr Laurent Identification/Chief Complaint Chief Complaint abdominal pain Source Source: Chart review, Patient History of Present Illness Reason for Visit: Reports RUQ pain with radiation to her back since Tuesday. No similar symptoms in past. Associated nausea and emesis. Reports subjective fevers and chills. Tolerated breakfast this AM-- did not worsen pain Past Medical History Past Medical History no pertinent hx Past Surgical History Past Surgical History: Tubal Ligation Family History Family History: Hypertension Social History No ALCOHOL: none Drugs: None Current Problem List Problem List Problems Medical Problems: (1) Acute pyelonephritis Status: Acute Current Medications Current Medications Current Medications Ondansetron HCl (Zofran) 4 mg 1X ONCE IV Last administered on 02/10/18at 20:24 ; Start 02/10/18 at 20:15; Stop 02/10/18 at 20:21; Status DC Sodium Chloride 1,000 ml @ 1,000 mls/hr 1X ONCE IV Last administered on at 20:24; Start 02/10/18 at 20:15; Stop 02/10/18 at 21:14; Status DC Morphine Sulfate (Morphine Sulfate) 4 mg 1X ONCE IV Last administered on at 20:25; Start 02/10/18 at 20:15; Stop 02/10/18 at 20:21; Status DC Ceftriaxone Sodium 50 ml @ 100 mls/hr 1X ONCE IV Last administered on at 21:47; Start 02/10/18 at 21:30; Stop 02/10/18 at 21:59; Status DC Morphine Sulfate (Morphine Sulfate) 4 mg 1X ONCE IV Last administered on at 21:51; Start 02/10/18 at 21:30; Stop 02/10/18 at 21:31; Status DC Ketorolac Tromethamine (Toradol) 30 mg 1X ONCE IV Last administered on at 22:15; Start 02/10/18 at 22:15; Stop 02/10/18 at 22:16; Status DC Ondansetron HCl (Zofran) 4 mg PRN Q8HRS PRN IV NAUSEA/VOMITING; Start 02/10/18 at 22:30; Stop 02/11/18 at 10:48; Status DC Morphine Sulfate (Morphine Sulfate) 4 mg PRN Q2HR PRN IV PAIN Last administered on 02/11/18at 08:18; Start 02/10/18 at 22:30; Stop 02/11/18 at 10:48 ; Status DC Sodium Chloride 1,000 ml @ 100 mls/hr Q10H IV Last administered on 02/13/18at 04:05; Start 02/11/18 at 00:30 Acetaminophen (Tylenol) 650 mg PRN Q6HRS PRN PO FEVER Last administered on 02/12at 00:44; Start 02/11/18 at 10:45 Ondansetron HCl (Zofran) 4 mg PRN Q6HRS PRN IV NAUSEA/VOMITING Last administered on 02/13/18 08:12; Start 02/11/18 at 10:45 Morphine Sulfate (Morphine Sulfate) 2 mg PRN Q2HR PRN IV MODERATE TO SEVERE PAIN Last administered on 02/11/18at 19:47; Start 02/11/18 at 10:45; Stop at 09:54; Status DC Tramadol HCl (Ultram) 50 mg PRN Q6HRS PRN PO MILD TO MODERATE PAIN Last administered on 02/12/18at 20:17; Start 02/11/18 at 10:45 Hydralazine HCl (Apresoline Inj) 10 mg PRN Q4HRS PRN IVP ELEVATED BP, SEE COMMENTS; Start 02/11/18 at 10:45 Docusate Sodium (Colace) 100 mg PRN DAILY PRN PO CONSTIPATION Last administered on 02/13/18at 08:09; Start 02/11/18 at 10:45 Ceftriaxone Sodium 1 gm/ Dextrose 50 ml @ 100 mls/hr Q24H IV ; Start 02/11/18 at 10:45; Status UNV Ceftriaxone Sodium (Rocephin) 1 gm Q24H IVP Last administered on 02/12/18at 20: 18; Start 02/11/18 at 21:00 Enoxaparin Sodium (Lovenox 40mg Syringe) 40 mg Q24H SQ Last administered on 06/20at 17:01; Start 02/11/18 at 16:00 Acetaminophen/ Hydrocodone Bitart (Lortab 5/325) 1 tab PRN Q4HRS PRN PO SEVERE PAIN Last administered on 02/13/18at 08:09; Start 02/12/18 at 09:45; Stop at 09:51; Status DC Potassium Chloride (Klor-Con) 40 meq 1X ONCE PO Last administered on at 13:31; Start 02/12/18 at 13:00; Stop 02/12/18 at 13:01; Status DC Lactobacillus Rhamnosus (Culturelle) 1 cap BID PO Last administered on at 08:09; Start 02/12/18 at 21:00 Acetaminophen/ Hydrocodone Bitart (Lortab 10/325) 1 tab PRN Q6HRS PRN PO MODERATE TO SEVERE PAIN; Start 02/13/18 at 10:00 Fentanyl Citrate (Fentanyl 2ml Vial) 50 mcg PRN Q2HR PRN IV PAIN; Start at 10:00 Allergies Allergies: Coded Allergies: No Known Drug Allergies (Unverified , 07/14/15) ROS General: YES: Chills, Other (fevers) PSYCHOLOGICAL ROS: No: Anxiety, Depression Eyes: No Blurry vision, No Double vision HEENT: No: Heacaches, Sore Throat Hematological and Lymphatic: No: Bleeding Problems, Blood Clots Respiratory: No: Cough, Shortness of breath Cardiovascular: No Chest Pain, No Palpitations Gastrointestinal: Yes Other (see hpi) Genitourinary: YES Dysuria; No Hematuria Musculoskeletal: No Joint Pain, No Muscle Pain Neurological: No Confusion, No Numbness/Tingling Skin: No Pruritus, No Rash Physical Exam General: Alert, Oriented X3, Cooperative, No acute distress HEENT: PERRLA, Mucous membr. moist/pink Lungs: Clear to auscultation, Normal air movement Heart: Regular rate, Normal S1, Normal S2, No murmurs Abdomen: Soft, Other (diffusely tender to upper abdomen) Extremities: No clubbing, No cyanosis Skin: No rashes, No breakdown Neuro: Normal gait, Normal speech Psych/Mental Status: Mental status NL, Mood NL MUSCULOSKELETAL: No deformity, No swelling Vitals VITALS Vital Signs Date Time Temp Pulse Resp B/P (MAP) Pulse Ox O2 Delivery O2 Flow Rate FiO2 02/13/18 09:15 99 Room Air 02/13/18 07:00 97.8 68 16 99/65 (76) 97.8 Labs Labs Laboratory Tests Test 02/12/18 04:50 02/13/18 03:10 02/13/18 03:20 White Blood Count 11.8 x10^3/uL (4.0-11.0) 7.9 x10^3/uL (4.0-11.0) Red Blood Count 4.07 x10^6/uL (3.50-5.40) 3.93 x10^6/uL (3.50-5.40) Hemoglobin 12.0 g/dL (12.0-15.5) 12.0 g/dL (12.0-15.5) Hematocrit 36.0 % (36.0-47.0) 34.5 % (36.0-47.0) Mean Corpuscular Volume 88 fL (79-100) 88 fL (79-100) Mean Corpuscular Hemoglobin 29 pg (25-35) 30 pg (25-35) Mean Corpuscular Hemoglobin Concent 33 g/dL (31-37) 35 g/dL (31-37) Red Cell Distribution Width 13.7 % (11.5-14.5) 13.6 % (11.5-14.5) Platelet Count 142 x10^3/uL (140-400) 153 x10^3/uL (140-400) Neutrophils (%) (Auto) 76 % (31-73) 59 % (31-73) Lymphocytes (%) (Auto) 16 % (24-48) 32 % (24-48) Monocytes (%) (Auto) 8 % (0-9) 8 % (0-9) Eosinophils (%) (Auto) 0 % (0-3) 2 % (0-3) Basophils (%) (Auto) 0 % (0-3) 0 % (0-3) Neutrophils # (Auto) 8.9 x10^3uL (1.8-7.7) 4.6 x10^3uL (1.8-7.7) Lymphocytes # (Auto) 1.8 x10^3/uL (1.0-4.8) 2.5 x10^3/uL (1.0-4.8) Monocytes # (Auto) 1.0 x10^3/uL (0.0-1.1) 0.6 x10^3/uL (0.0-1.1) Eosinophils # (Auto) 0.0 x10^3/uL (0.0-0.7) 0.1 x10^3/uL (0.0-0.7) Basophils # (Auto) 0.0 x10^3/uL (0.0-0.2) 0.0 x10^3/uL (0.0-0.2) Sodium Level 134 mmol/L (136-145) 138 mmol/L (136-145) Potassium Level 3.4 mmol/L (3.5-5.1) 3.6 mmol/L (3.5-5.1) Chloride Level 105 mmol/L (98-107) 107 mmol/L (98-107) Carbon Dioxide Level 20 mmol/L (21-32) 24 mmol/L (21-32) Anion Gap 9 (6-14) 7 (6-14) Blood Urea Nitrogen 5 mg/dL (7-20) 4 mg/dL (7-20) Creatinine 0.6 mg/dL (0.6-1.0) 0.5 mg/dL (0.6-1.0) Estimated GFR (Cockcroft-Gault) 115.9 143.0 Glucose Level 112 mg/dL (70-99) 101 mg/dL (70-99) Calcium Level 7.6 mg/dL (8.5-10.1) 8.3 mg/dL (8.5-10.1) Laboratory Tests Test 02/13/18 03:10 02/13/18 03:20 Sodium Level 138 mmol/L (136-145) Potassium Level 3.6 mmol/L (3.5-5.1) Chloride Level 107 mmol/L (98-107) Carbon Dioxide Level 24 mmol/L (21-32) Anion Gap 7 (6-14) Blood Urea Nitrogen 4 mg/dL (7-20) Creatinine 0.5 mg/dL (0.6-1.0) Estimated GFR (Cockcroft-Gault) 143.0 Glucose Level 101 mg/dL (70-99) Calcium Level 8.3 mg/dL (8.5-10.1) White Blood Count 7.9 x10^3/uL (4.0-11.0) Red Blood Count 3.93 x10^6/uL (3.50-5.40) Hemoglobin 12.0 g/dL (12.0-15.5) Hematocrit 34.5 % (36.0-47.0) Mean Corpuscular Volume 88 fL (79-100) Mean Corpuscular Hemoglobin 30 pg (25-35) Mean Corpuscular Hemoglobin Concent 35 g/dL (31-37) Red Cell Distribution Width 13.6 % (11.5-14.5) Platelet Count 153 x10^3/uL (140-400) Neutrophils (%) (Auto) 59 % (31-73) Lymphocytes (%) (Auto) 32 % (24-48) Monocytes (%) (Auto) 8 % (0-9) Eosinophils (%) (Auto) 2 % (0-3) Basophils (%) (Auto) 0 % (0-3) Neutrophils # (Auto) 4.6 x10^3uL (1.8-7.7) Lymphocytes # (Auto) 2.5 x10^3/uL (1.0-4.8) Monocytes # (Auto) 0.6 x10^3/uL (0.0-1.1) Eosinophils # (Auto) 0.1 x10^3/uL (0.0-0.7) Basophils # (Auto) 0.0 x10^3/uL (0.0-0.2) Images Images reviewed CT Assessment/Plan Assessment/Plan RUQ pain pyelonephritis await US KAL VAZQUEZ MD 02/13/18 1230: CONSULT Assessment/Plan Assessment/Plan Reviewed, agree with above; pyelonephritis seems likely source based on CT and UA GUILLE MATTA CLIENT ADVISOR Feb 13, 2018 11:36 KAL VAZQUEZ MD Feb 13, 2018 12:30
--- NOTE | 2018-02-13 12:24 | RAD ---
Single view of the abdomen 02/13/2018 INDICATION: Continued abdominal pain. COMPARISON STUDY: CT scan abdomen and pelvis February 10, 2018. Discussion: Bowel gas pattern is nonobstructive. Increased stool noted throughout the colon. Correlate with constipation. No acute osseous changes are identified. Punctate right renal calculus seen on the prior CT scan is not appreciated radiographically. IMPRESSION: 1.Mildly increased stool throughout the colon. Correlate with clinical evidence of constipation 2. Punctate renal calculus in the right kidney and prior CT scan is not identified radiographically. Electronically signed by: Mckinley Whitney MD (02/13/2018 12:20 PM) [id number]
[2018-02-13] MEDS: ACETAMINOPHEN 325 MG TABLET. PO PRN (14:23)
[2018-02-13] MEDS ORDERED: MORPHINE SULFATE 2 MG/ML DISP.SYRIN. IV PRN (15:30)
--- NOTE | 2018-02-13 15:56 | RAD ---
Examination: Ultrasound abdomen limited HISTORY: History of right upper quadrant pain COMPARISON: None available FINDINGS: The pancreas is not well-visualized due to bowel gas. The gallbladder is contracted however no obvious echogenicity identified within the gallbladder to suggest gallstones. The echogenicity liver grossly appears unremarkable. The right kidney measures 11.8 cm in length. The common bile duct measures 4.3 mm in diameter. IMPRESSION: 1. Contracted appearing gallbladder without obvious gallstones. Electronically signed by: Tawanda Escalante MD (02/13/2018 3:52 PM) [id number]
[2018-02-13] MEDS: ENOXAPARIN 40 MG/0.4 ML SYRINGE. SQ SCH (16:00)
[2018-02-13] MEDS: traMADol 50 MG TABLET PO PRN ×2 (16:27→22:28)
[2018-02-13] MEDS: cefTRIAXone IV Push 1 GM VIAL. IVP SCH (20:36)
[2018-02-14 03:00] VITALS: BP 101/63
[2018-02-14 04:21] LABS: BASO % 0 % (0-3); EOS # 0.1 x10^3/uL (0.0-0.7); EOS % 2 % (0-3); HEMATOCRIT 35.1 % (36.0-47.0); HEMOGLOBIN 12.2 g/dL (12.0-15.5); LYMPH # 2.5 x10^3/uL (1.0-4.8); LYMPH % 29 % (24-48); MEAN CORPUSCULAR HEMOGLOBIN 30 pg (25-35); MEAN CORPUSCULAR HGB CONC 35 g/dL (31-37); MEAN CORPUSCULAR VOLUME 87 fL (79-100); MONO # 0.6 x10^3/uL (0.0-1.1); MONO % 7 % (0-9); NEUT # 5.3 x10^3uL (1.8-7.7); NEUT % 62 % (31-73); PLATELET COUNT 197 x10^3/uL (140-400); RED BLOOD COUNT 4.04 x10^6/uL (3.50-5.40); RED CELL DISTRIBUTION WIDTH 13.9 % (11.5-14.5); WHITE BLOOD COUNT 8.6 x10^3/uL (4.0-11.0)
[2018-02-14 04:38] LABS: ALBUMIN 2.8 g/dL (3.4-5.0); ALBUMIN/GLOBULIN RATIO 0.8 (1.0-1.7); CALCIUM 8.5 mg/dL (8.5-10.1); CREATININE 0.6 mg/dL (0.6-1.0); GFR 115.9; POTASSIUM 3.8 mmol/L (3.5-5.1); TOTAL BILIRUBIN 0.3 mg/dL (0.2-1.0); TOTAL PROTEIN 6.2 g/dL (6.4-8.2)
[2018-02-14] MEDS: ONDANSETRON PF 4 MG/2 ML VIAL. IV PRN ×2 (06:26→12:14)
[2018-02-14 07:15] VITALS: BP 108/58
[2018-02-14] MEDS: LACTOBACILLUS RHAMNOSUS GG 1 CAPSULE. PO SCH (08:44)
--- NOTE | 2018-02-14 09:14 | PDOC ---
GUILLE MATTA FEDERAL DISTRICT CLERK 02/14/18 0914: SURGICAL PROGRESS NOTE Subjective pain to right flank headache nausea Vital Signs Vital Signs Date Time Temp Pulse Resp B/P (MAP) Pulse Ox O2 Delivery O2 Flow Rate FiO2 02/14/18 07:15 97.6 79 18 108/58 (75) 96 Room Air 97.6 I&O Intake and Output 02/14/18 07:00 Intake Total 0 ml Balance 0 ml Intake Oral 0 ml # Voids 4 General: Alert, Oriented X3, Cooperative, No acute distress Abdomen: Soft, Other (right flank TTP) Labs Laboratory Tests Test 02/13/18 03:10 02/13/18 03:20 02/14/18 03:25 Sodium Level 138 mmol/L (136-145) 137 mmol/L (136-145) Potassium Level 3.6 mmol/L (3.5-5.1) 3.8 mmol/L (3.5-5.1) Chloride Level 107 mmol/L (98-107) 106 mmol/L (98-107) Carbon Dioxide Level 24 mmol/L (21-32) 26 mmol/L (21-32) Anion Gap 7 (6-14) 5 (6-14) Blood Urea Nitrogen 4 mg/dL (7-20) 4 mg/dL (7-20) Creatinine 0.5 mg/dL (0.6-1.0) 0.6 mg/dL (0.6-1.0) Estimated GFR (Cockcroft-Gault) 143.0 115.9 Glucose Level 101 mg/dL (70-99) 81 mg/dL (70-99) Calcium Level 8.3 mg/dL (8.5-10.1) 8.5 mg/dL (8.5-10.1) White Blood Count 7.9 x10^3/uL (4.0-11.0) 8.6 x10^3/uL (4.0-11.0) Red Blood Count 3.93 x10^6/uL (3.50-5.40) 4.04 x10^6/uL (3.50-5.40) Hemoglobin 12.0 g/dL (12.0-15.5) 12.2 g/dL (12.0-15.5) Hematocrit 34.5 % (36.0-47.0) 35.1 % (36.0-47.0) Mean Corpuscular Volume 88 fL (79-100) 87 fL (79-100) Mean Corpuscular Hemoglobin 30 pg (25-35) 30 pg (25-35) Mean Corpuscular Hemoglobin Concent 35 g/dL (31-37) 35 g/dL (31-37) Red Cell Distribution Width 13.6 % (11.5-14.5) 13.9 % (11.5-14.5) Platelet Count 153 x10^3/uL (140-400) 197 x10^3/uL (140-400) Neutrophils (%) (Auto) 59 % (31-73) 62 % (31-73) Lymphocytes (%) (Auto) 32 % (24-48) 29 % (24-48) Monocytes (%) (Auto) 8 % (0-9) 7 % (0-9) Eosinophils (%) (Auto) 2 % (0-3) 2 % (0-3) Basophils (%) (Auto) 0 % (0-3) 0 % (0-3) Neutrophils # (Auto) 4.6 x10^3uL (1.8-7.7) 5.3 x10^3uL (1.8-7.7) Lymphocytes # (Auto) 2.5 x10^3/uL (1.0-4.8) 2.5 x10^3/uL (1.0-4.8) Monocytes # (Auto) 0.6 x10^3/uL (0.0-1.1) 0.6 x10^3/uL (0.0-1.1) Eosinophils # (Auto) 0.1 x10^3/uL (0.0-0.7) 0.1 x10^3/uL (0.0-0.7) Basophils # (Auto) 0.0 x10^3/uL (0.0-0.2) 0.0 x10^3/uL (0.0-0.2) Erythrocyte Sedimentation Rate 15 (0-25) BUN/Creatinine Ratio 7 (6-20) Total Bilirubin 0.3 mg/dL (0.2-1.0) Aspartate Amino Transf (AST/SGOT) 32 U/L (15-37) Alanine Aminotransferase (ALT/SGPT) 35 U/L (14-59) Alkaline Phosphatase 70 U/L (46-116) Total Protein 6.2 g/dL (6.4-8.2) Albumin 2.8 g/dL (3.4-5.0) Albumin/Globulin Ratio 0.8 (1.0-1.7) Laboratory Tests Test 02/14/18 03:25 White Blood Count 8.6 x10^3/uL (4.0-11.0) Red Blood Count 4.04 x10^6/uL (3.50-5.40) Hemoglobin 12.2 g/dL (12.0-15.5) Hematocrit 35.1 % (36.0-47.0) Mean Corpuscular Volume 87 fL (79-100) Mean Corpuscular Hemoglobin 30 pg (25-35) Mean Corpuscular Hemoglobin Concent 35 g/dL (31-37) Red Cell Distribution Width 13.9 % (11.5-14.5) Platelet Count 197 x10^3/uL (140-400) Neutrophils (%) (Auto) 62 % (31-73) Lymphocytes (%) (Auto) 29 % (24-48) Monocytes (%) (Auto) 7 % (0-9) Eosinophils (%) (Auto) 2 % (0-3) Basophils (%) (Auto) 0 % (0-3) Neutrophils # (Auto) 5.3 x10^3uL (1.8-7.7) Lymphocytes # (Auto) 2.5 x10^3/uL (1.0-4.8) Monocytes # (Auto) 0.6 x10^3/uL (0.0-1.1) Eosinophils # (Auto) 0.1 x10^3/uL (0.0-0.7) Basophils # (Auto) 0.0 x10^3/uL (0.0-0.2) Erythrocyte Sedimentation Rate 15 (0-25) Sodium Level 137 mmol/L (136-145) Potassium Level 3.8 mmol/L (3.5-5.1) Chloride Level 106 mmol/L (98-107) Carbon Dioxide Level 26 mmol/L (21-32) Anion Gap 5 (6-14) Blood Urea Nitrogen 4 mg/dL (7-20) Creatinine 0.6 mg/dL (0.6-1.0) Estimated GFR (Cockcroft-Gault) 115.9 BUN/Creatinine Ratio 7 (6-20) Glucose Level 81 mg/dL (70-99) Calcium Level 8.5 mg/dL (8.5-10.1) Total Bilirubin 0.3 mg/dL (0.2-1.0) Aspartate Amino Transf (AST/SGOT) 32 U/L (15-37) Alanine Aminotransferase (ALT/SGPT) 35 U/L (14-59) Alkaline Phosphatase 70 U/L (46-116) Total Protein 6.2 g/dL (6.4-8.2) Albumin 2.8 g/dL (3.4-5.0) Albumin/Globulin Ratio 0.8 (1.0-1.7) Problem List Problems Medical Problems: (1) Acute pyelonephritis Status: Acute Assessment/Plan no stones on GB sono would treat pyelonephritis if continued abd pain--could consider HIDA once infection resolved KAL VAZQUEZ MD 02/14/18 0932: SURGICAL PROGRESS NOTE Assessment/Plan Agree with above, no gallbladder abnormality detected with testing; suspect pain due to pyelo. We will sign off, please call if needed in the future GUILLE MATTA APRN Feb 14, 2018 09:14 KAL VAZQUEZ MD Feb 14, 2018 09:32
[2018-02-14 11:10] VITALS: BP 96/59
--- NOTE | 2018-02-14 11:24 | PDOC2 ---
YORDY ROMERO RFID ANALYST 02/14/18 1124: UROLOGY CONSULT Date of Consult Date of Consult DATE: 02/14/18 TIME: 11:18 Reason for Consult Reason for Consult: Abd pain, tiny 2 mm non obstructing stone seen in the lower pole of the right kidney. Identification/Chief Complaint Chief Complaint tiny 2 mm non obstructing stone seen in the lower pole of the right kidney. Source Source: Caregiver, Chart review, Patient History of Present Illness Reason for Visit: Patient is a 32 year old female who presented to ER with RLQ abd pain and increased urinary frequency nausea, vomiting, and diarrhea for 4 days. Patient also reports having blood in her urine for four days prior to coming into the ER , but this has now resolved. She denies any history of kidney stones or kidney function problems. No history of bladder problems, cancers, or surgeries with the exception of a tubal ligation. Today her pain is under the right lower border of her right ribcage, but it also feels like it radiates down to the rest of her abdomen and then around to her back. Her urinary symptoms have resolved completely, but the pain persists. She is nauseas today, but not vomiting. Past Medical History Renal/: No pertinent hx Grav: 3 Para: 3 Past Surgical History Past Surgical History: Tubal Ligation Family History Family History: Hypertension Social History No ALCOHOL: none Drugs: None Current Medications Current Medications Current Medications Morphine Sulfate (Morphine Sulfate) 2 mg PRN Q2HR PRN IV PAIN Last administered on 02/14/18at 06:26; Start 02/13/18 at 15:30 Allergies Allergies: Coded Allergies: No Known Drug Allergies (Unverified , 07/14/15) ROS Review Of Systems: CONSTITUTIONAL: + fevers on and off EYES: No recent changes SKIN: No rash or itching CARDIOVASCULAR: No chest pain, syncope, palpitations, or edema RESPIRATORY: No SOB or cough GASTROINTESTINAL: + abd pain NEUROLOGICAL: No headaches or weakness ENDOCRINE: No cold or heat intolerance GENITOURINARY: No urgency or frequency of urination, had this but is now resolved. MUSCULOSKELETAL: No back pain or joint pain LYMPHATICS: No enlarged lymph nodes PSYCHIATRIC: No anxiety or depression Physical Exam Physical Exam: General: Pleasant, no acute distress, well groomed Eyes: conjunctiva anicteric, eyes full range of motion ENT: moist oral mucosa, normal dentition Neck: Trachea midline, no masses Respiratory: unlabored breathing, not using accessory muscles Abdomen: generalized tenderness throughout abdomen, worse in right upper quadrant under rib cage. No masses noted. No flank pain with CVA testing. Skin: no rashes or skin lesions on visualized skin Psych: normal mood, affect. Alert and oriented x 3. Vitals VITALS Vital Signs Date Time Temp Pulse Resp B/P (MAP) Pulse Ox O2 Delivery O2 Flow Rate FiO2 02/14/18 08:00 Room Air 02/14/18 07:15 97.6 79 18 108/58 (75) 96 97.6 Labs Labs Laboratory Tests Test 02/13/18 03:10 02/13/18 03:20 02/14/18 03:25 Sodium Level 138 mmol/L (136-145) 137 mmol/L (136-145) Potassium Level 3.6 mmol/L (3.5-5.1) 3.8 mmol/L (3.5-5.1) Chloride Level 107 mmol/L (98-107) 106 mmol/L (98-107) Carbon Dioxide Level 24 mmol/L (21-32) 26 mmol/L (21-32) Anion Gap 7 (6-14) 5 (6-14) Blood Urea Nitrogen 4 mg/dL (7-20) 4 mg/dL (7-20) Creatinine 0.5 mg/dL (0.6-1.0) 0.6 mg/dL (0.6-1.0) Estimated GFR (Cockcroft-Gault) 143.0 115.9 Glucose Level 101 mg/dL (70-99) 81 mg/dL (70-99) Calcium Level 8.3 mg/dL (8.5-10.1) 8.5 mg/dL (8.5-10.1) White Blood Count 7.9 x10^3/uL (4.0-11.0) 8.6 x10^3/uL (4.0-11.0) Red Blood Count 3.93 x10^6/uL (3.50-5.40) 4.04 x10^6/uL (3.50-5.40) Hemoglobin 12.0 g/dL (12.0-15.5) 12.2 g/dL (12.0-15.5) Hematocrit 34.5 % (36.0-47.0) 35.1 % (36.0-47.0) Mean Corpuscular Volume 88 fL (79-100) 87 fL (79-100) Mean Corpuscular Hemoglobin 30 pg (25-35) 30 pg (25-35) Mean Corpuscular Hemoglobin Concent 35 g/dL (31-37) 35 g/dL (31-37) Red Cell Distribution Width 13.6 % (11.5-14.5) 13.9 % (11.5-14.5) Platelet Count 153 x10^3/uL (140-400) 197 x10^3/uL (140-400) Neutrophils (%) (Auto) 59 % (31-73) 62 % (31-73) Lymphocytes (%) (Auto) 32 % (24-48) 29 % (24-48) Monocytes (%) (Auto) 8 % (0-9) 7 % (0-9) Eosinophils (%) (Auto) 2 % (0-3) 2 % (0-3) Basophils (%) (Auto) 0 % (0-3) 0 % (0-3) Neutrophils # (Auto) 4.6 x10^3uL (1.8-7.7) 5.3 x10^3uL (1.8-7.7) Lymphocytes # (Auto) 2.5 x10^3/uL (1.0-4.8) 2.5 x10^3/uL (1.0-4.8) Monocytes # (Auto) 0.6 x10^3/uL (0.0-1.1) 0.6 x10^3/uL (0.0-1.1) Eosinophils # (Auto) 0.1 x10^3/uL (0.0-0.7) 0.1 x10^3/uL (0.0-0.7) Basophils # (Auto) 0.0 x10^3/uL (0.0-0.2) 0.0 x10^3/uL (0.0-0.2) Erythrocyte Sedimentation Rate 15 (0-25) BUN/Creatinine Ratio 7 (6-20) Total Bilirubin 0.3 mg/dL (0.2-1.0) Aspartate Amino Transf (AST/SGOT) 32 U/L (15-37) Alanine Aminotransferase (ALT/SGPT) 35 U/L (14-59) Alkaline Phosphatase 70 U/L (46-116) Total Protein 6.2 g/dL (6.4-8.2) Albumin 2.8 g/dL (3.4-5.0) Albumin/Globulin Ratio 0.8 (1.0-1.7) Laboratory Tests Test 02/14/18 03:25 White Blood Count 8.6 x10^3/uL (4.0-11.0) Red Blood Count 4.04 x10^6/uL (3.50-5.40) Hemoglobin 12.2 g/dL (12.0-15.5) Hematocrit 35.1 % (36.0-47.0) Mean Corpuscular Volume 87 fL (79-100) Mean Corpuscular Hemoglobin 30 pg (25-35) Mean Corpuscular Hemoglobin Concent 35 g/dL (31-37) Red Cell Distribution Width 13.9 % (11.5-14.5) Platelet Count 197 x10^3/uL (140-400) Neutrophils (%) (Auto) 62 % (31-73) Lymphocytes (%) (Auto) 29 % (24-48) Monocytes (%) (Auto) 7 % (0-9) Eosinophils (%) (Auto) 2 % (0-3) Basophils (%) (Auto) 0 % (0-3) Neutrophils # (Auto) 5.3 x10^3uL (1.8-7.7) Lymphocytes # (Auto) 2.5 x10^3/uL (1.0-4.8) Monocytes # (Auto) 0.6 x10^3/uL (0.0-1.1) Eosinophils # (Auto) 0.1 x10^3/uL (0.0-0.7) Basophils # (Auto) 0.0 x10^3/uL (0.0-0.2) Erythrocyte Sedimentation Rate 15 (0-25) Sodium Level 137 mmol/L (136-145) Potassium Level 3.8 mmol/L (3.5-5.1) Chloride Level 106 mmol/L (98-107) Carbon Dioxide Level 26 mmol/L (21-32) Anion Gap 5 (6-14) Blood Urea Nitrogen 4 mg/dL (7-20) Creatinine 0.6 mg/dL (0.6-1.0) Estimated GFR (Cockcroft-Gault) 115.9 BUN/Creatinine Ratio 7 (6-20) Glucose Level 81 mg/dL (70-99) Calcium Level 8.5 mg/dL (8.5-10.1) Total Bilirubin 0.3 mg/dL (0.2-1.0) Aspartate Amino Transf (AST/SGOT) 32 U/L (15-37) Alanine Aminotransferase (ALT/SGPT) 35 U/L (14-59) Alkaline Phosphatase 70 U/L (46-116) Total Protein 6.2 g/dL (6.4-8.2) Albumin 2.8 g/dL (3.4-5.0) Albumin/Globulin Ratio 0.8 (1.0-1.7) Images Images CT ABD/PELVIS FROM 02/10 IMPRESSION: 1. Increased density is seen within the fat adjacent to the inferior aspect of the right kidney. This is a nonspecific finding. It could be seen with recently relieved obstruction of the right collecting system or could also be seen with pyelonephritis. Clinical correlation is recommended. 2. Small amount of free fluid is seen within the pelvis. Assessment/Plan Assessment/Plan Tiny 2 mm non obstructing stone in the lower pole of the right kidney-This is not a cause of the patient's pain. UTI with questionable pyelonephritis, recommend antibiotics, fluids and time. No surgical intervention required, no follow up needed with Urology services. Will sign off, but Please call with questions or change in patient condition. JOHANNE VARGAS MD 02/14/18 7535: UROLOGY CONSULT Assessment/Plan Assessment/Plan Attempted to see patient, but she was showering. Review of her CT scan shows small non-obstructing right renal stone and mild perinephric fat stranding, but no other abnormality of the urinary tract. Reported hematuria and UA is mackenzie. No RBCs on micro. Cr WNL. I do not feel that her RUQ pain is related to her urinary tract. YORDY ROMERO APRN Feb 14, 2018 11:24 JOHANNE VARGAS MD Feb 14, 2018 15:55
[2018-02-14 11:29] LABS: BILIRUBIN,URINE NEGATIVE (NEG); CLARITY,URINE CLEAR; COLOR,URINE YELLOW; NITRITE,URINE NEGATIVE (NEG); PH,URINE 7.5; PROTEIN,URINE NEGATIVE (NEG-TRACE); UROBILINOGEN,URINE 0.2 mg/dL (0.2 mg/dL)
[2018-02-14 11:49] LABS: RBC,URINE OCC /HPF (0-2)
[2018-02-14 11:50] LABS: BACTERIA,URINE FEW /HPF (0-FEW); SQUAMOUS EPITHELIAL CELL,UR MOD /LPF
--- NOTE | 2018-02-14 12:07 | PDOC ---
PROGRESS NOTES Chief Complaint Chief Complaint Punctuate nephrolithiasis Pyelonephritis Escherichia coli UTI Sepsis POA hypokalemia, replaced History of Present Illness History of Present Illness Ultrasound of the abdomen shows a collapsed gallbladder Punctate nephrolithiasis seen on KUB Hence I consulted urology, nonsurgical for now Patient is still complaining of pain, but in my perspective she looks much better today than yesterday Still has not eaten, was nothing by mouth because of urology eval today Escherichia coli on urine cultures Plan: Regular diet Continue IV fluids DC IV pain medicines, continue by mouth pain meds-so far has received one by mouth pain pills and one morphine and one fentanyl IV push Target DC home tomorrow Escherichia coli on urine culture- will await for sensitivities dw RN Vitals Vitals Vital Signs Date Time Temp Pulse Resp B/P (MAP) Pulse Ox O2 Delivery O2 Flow Rate FiO2 02/14/18 11:10 98.3 60 20 96/59 (71) 97 Room Air 98.3 Physical Exam General: Alert, Oriented X3, Cooperative, No acute distress Heart: Regular rate, Normal S1, Normal S2, No murmurs Lungs: Clear Abdomen: Soft, Other (right flank TTP) Extremities: No clubbing, No cyanosis Skin: No rashes, No breakdown Labs LABS Laboratory Tests Test 02/14/18 03:25 02/14/18 10:00 White Blood Count 8.6 x10^3/uL (4.0-11.0) Red Blood Count 4.04 x10^6/uL (3.50-5.40) Hemoglobin 12.2 g/dL (12.0-15.5) Hematocrit 35.1 % (36.0-47.0) Mean Corpuscular Volume 87 fL (79-100) Mean Corpuscular Hemoglobin 30 pg (25-35) Mean Corpuscular Hemoglobin Concent 35 g/dL (31-37) Red Cell Distribution Width 13.9 % (11.5-14.5) Platelet Count 197 x10^3/uL (140-400) Neutrophils (%) (Auto) 62 % (31-73) Lymphocytes (%) (Auto) 29 % (24-48) Monocytes (%) (Auto) 7 % (0-9) Eosinophils (%) (Auto) 2 % (0-3) Basophils (%) (Auto) 0 % (0-3) Neutrophils # (Auto) 5.3 x10^3uL (1.8-7.7) Lymphocytes # (Auto) 2.5 x10^3/uL (1.0-4.8) Monocytes # (Auto) 0.6 x10^3/uL (0.0-1.1) Eosinophils # (Auto) 0.1 x10^3/uL (0.0-0.7) Basophils # (Auto) 0.0 x10^3/uL (0.0-0.2) Erythrocyte Sedimentation Rate 15 (0-25) Sodium Level 137 mmol/L (136-145) Potassium Level 3.8 mmol/L (3.5-5.1) Chloride Level 106 mmol/L (98-107) Carbon Dioxide Level 26 mmol/L (21-32) Anion Gap 5 (6-14) Blood Urea Nitrogen 4 mg/dL (7-20) Creatinine 0.6 mg/dL (0.6-1.0) Estimated GFR (Cockcroft-Gault) 115.9 BUN/Creatinine Ratio 7 (6-20) Glucose Level 81 mg/dL (70-99) Calcium Level 8.5 mg/dL (8.5-10.1) Total Bilirubin 0.3 mg/dL (0.2-1.0) Aspartate Amino Transf (AST/SGOT) 32 U/L (15-37) Alanine Aminotransferase (ALT/SGPT) 35 U/L (14-59) Alkaline Phosphatase 70 U/L (46-116) Total Protein 6.2 g/dL (6.4-8.2) Albumin 2.8 g/dL (3.4-5.0) Albumin/Globulin Ratio 0.8 (1.0-1.7) Urine Collection Type Clean catch Urine Color Yellow Urine Clarity Clear Urine pH 7.5 Urine Specific [place] <=1.005 Urine Protein Negative mg/dL (NEG-TRACE) Urine Glucose (UA) Negative mg/dL (NEG) Urine Ketones (Stick) Negative mg/dL (NEG) Urine Blood Negative (NEG) Urine Nitrite Negative (NEG) Urine Bilirubin Negative (NEG) Urine Urobilinogen Dipstick 0.2 mg/dL (0.2 mg/dL) Urine Leukocyte Esterase Negative (NEG) Urine RBC Occ /HPF (0-2) Urine WBC 1-4 /HPF (0-4) Urine Squamous Epithelial Cells Mod /LPF Urine Bacteria Few /HPF (0-FEW) Urine Mucus Slight /LPF Review of Systems Review of Systems Pain, otherwise the rest of 14 point systems reviewed negative Assessment and Plan Assessmemt and Plan Problems Medical Problems: (1) Acute pyelonephritis Status: Acute Comment Review of Relevant I have reviewed the following items evan (where applicable) has been applied. Labs Laboratory Tests Test 02/13/18 03:10 02/13/18 03:20 02/14/18 03:25 02/14/18 10:00 Sodium Level 138 mmol/L (136-145) 137 mmol/L (136-145) Potassium Level 3.6 mmol/L (3.5-5.1) 3.8 mmol/L (3.5-5.1) Chloride Level 107 mmol/L (98-107) 106 mmol/L (98-107) Carbon Dioxide Level 24 mmol/L (21-32) 26 mmol/L (21-32) Anion Gap 7 (6-14) 5 (6-14) Blood Urea Nitrogen 4 mg/dL (7-20) 4 mg/dL (7-20) Creatinine 0.5 mg/dL (0.6-1.0) 0.6 mg/dL (0.6-1.0) Estimated GFR (Cockcroft-Gault) 143.0 115.9 Glucose Level 101 mg/dL (70-99) 81 mg/dL (70-99) Calcium Level 8.3 mg/dL (8.5-10.1) 8.5 mg/dL (8.5-10.1) White Blood Count 7.9 x10^3/uL (4.0-11.0) 8.6 x10^3/uL (4.0-11.0) Red Blood Count 3.93 x10^6/uL (3.50-5.40) 4.04 x10^6/uL (3.50-5.40) Hemoglobin 12.0 g/dL (12.0-15.5) 12.2 g/dL (12.0-15.5) Hematocrit 34.5 % (36.0-47.0) 35.1 % (36.0-47.0) Mean Corpuscular Volume 88 fL (79-100) 87 fL (79-100) Mean Corpuscular Hemoglobin 30 pg (25-35) 30 pg (25-35) Mean Corpuscular Hemoglobin Concent 35 g/dL (31-37) 35 g/dL (31-37) Red Cell Distribution Width 13.6 % (11.5-14.5) 13.9 % (11.5-14.5) Platelet Count 153 x10^3/uL (140-400) 197 x10^3/uL (140-400) Neutrophils (%) (Auto) 59 % (31-73) 62 % (31-73) Lymphocytes (%) (Auto) 32 % (24-48) 29 % (24-48) Monocytes (%) (Auto) 8 % (0-9) 7 % (0-9) Eosinophils (%) (Auto) 2 % (0-3) 2 % (0-3) Basophils (%) (Auto) 0 % (0-3) 0 % (0-3) Neutrophils # (Auto) 4.6 x10^3uL (1.8-7.7) 5.3 x10^3uL (1.8-7.7) Lymphocytes # (Auto) 2.5 x10^3/uL (1.0-4.8) 2.5 x10^3/uL (1.0-4.8) Monocytes # (Auto) 0.6 x10^3/uL (0.0-1.1) 0.6 x10^3/uL (0.0-1.1) Eosinophils # (Auto) 0.1 x10^3/uL (0.0-0.7) 0.1 x10^3/uL (0.0-0.7) Basophils # (Auto) 0.0 x10^3/uL (0.0-0.2) 0.0 x10^3/uL (0.0-0.2) Erythrocyte Sedimentation Rate 15 (0-25) BUN/Creatinine Ratio 7 (6-20) Total Bilirubin 0.3 mg/dL (0.2-1.0) Aspartate Amino Transf (AST/SGOT) 32 U/L (15-37) Alanine Aminotransferase (ALT/SGPT) 35 U/L (14-59) Alkaline Phosphatase 70 U/L (46-116) Total Protein 6.2 g/dL (6.4-8.2) Albumin 2.8 g/dL (3.4-5.0) Albumin/Globulin Ratio 0.8 (1.0-1.7) Urine Collection Type Clean catch Urine Color Yellow Urine Clarity Clear Urine pH 7.5 Urine Specific [place] <=1.005 Urine Protein Negative mg/dL (NEG-TRACE) Urine Glucose (UA) Negative mg/dL (NEG) Urine Ketones (Stick) Negative mg/dL (NEG) Urine Blood Negative (NEG) Urine Nitrite Negative (NEG) Urine Bilirubin Negative (NEG) Urine Urobilinogen Dipstick 0.2 mg/dL (0.2 mg/dL) Urine Leukocyte Esterase Negative (NEG) Urine RBC Occ /HPF (0-2) Urine WBC 1-4 /HPF (0-4) Urine Squamous Epithelial Cells Mod /LPF Urine Bacteria Few /HPF (0-FEW) Urine Mucus Slight /LPF Laboratory Tests Test 02/14/18 03:25 02/14/18 10:00 White Blood Count 8.6 x10^3/uL (4.0-11.0) Red Blood Count 4.04 x10^6/uL (3.50-5.40) Hemoglobin 12.2 g/dL (12.0-15.5) Hematocrit 35.1 % (36.0-47.0) Mean Corpuscular Volume 87 fL (79-100) Mean Corpuscular Hemoglobin 30 pg (25-35) Mean Corpuscular Hemoglobin Concent 35 g/dL (31-37) Red Cell Distribution Width 13.9 % (11.5-14.5) Platelet Count 197 x10^3/uL (140-400) Neutrophils (%) (Auto) 62 % (31-73) Lymphocytes (%) (Auto) 29 % (24-48) Monocytes (%) (Auto) 7 % (0-9) Eosinophils (%) (Auto) 2 % (0-3) Basophils (%) (Auto) 0 % (0-3) Neutrophils # (Auto) 5.3 x10^3uL (1.8-7.7) Lymphocytes # (Auto) 2.5 x10^3/uL (1.0-4.8) Monocytes # (Auto) 0.6 x10^3/uL (0.0-1.1) Eosinophils # (Auto) 0.1 x10^3/uL (0.0-0.7) Basophils # (Auto) 0.0 x10^3/uL (0.0-0.2) Erythrocyte Sedimentation Rate 15 (0-25) Sodium Level 137 mmol/L (136-145) Potassium Level 3.8 mmol/L (3.5-5.1) Chloride Level 106 mmol/L (98-107) Carbon Dioxide Level 26 mmol/L (21-32) Anion Gap 5 (6-14) Blood Urea Nitrogen 4 mg/dL (7-20) Creatinine 0.6 mg/dL (0.6-1.0) Estimated GFR (Cockcroft-Gault) 115.9 BUN/Creatinine Ratio 7 (6-20) Glucose Level 81 mg/dL (70-99) Calcium Level 8.5 mg/dL (8.5-10.1) Total Bilirubin 0.3 mg/dL (0.2-1.0) Aspartate Amino Transf (AST/SGOT) 32 U/L (15-37) Alanine Aminotransferase (ALT/SGPT) 35 U/L (14-59) Alkaline Phosphatase 70 U/L (46-116) Total Protein 6.2 g/dL (6.4-8.2) Albumin 2.8 g/dL (3.4-5.0) Albumin/Globulin Ratio 0.8 (1.0-1.7) Urine Collection Type Clean catch Urine Color Yellow Urine Clarity Clear Urine pH 7.5 Urine Specific [place] <=1.005 Urine Protein Negative mg/dL (NEG-TRACE) Urine Glucose (UA) Negative mg/dL (NEG) Urine Ketones (Stick) Negative mg/dL (NEG) Urine Blood Negative (NEG) Urine Nitrite Negative (NEG) Urine Bilirubin Negative (NEG) Urine Urobilinogen Dipstick 0.2 mg/dL (0.2 mg/dL) Urine Leukocyte Esterase Negative (NEG) Urine RBC Occ /HPF (0-2) Urine WBC 1-4 /HPF (0-4) Urine Squamous Epithelial Cells Mod /LPF Urine Bacteria Few /HPF (0-FEW) Urine Mucus Slight /LPF Microbiology 02/10/18 Urine Culture - Preliminary, Resulted 02/10/18 Urine Culture Result 1 (GEOVANNY) - Preliminary, Resulted Medications Current Medications Ondansetron HCl (Zofran) 4 mg 1X ONCE IV Last administered on 02/10/18at 20:24 ; Start 02/10/18 at 20:15; Stop 02/10/18 at 20:21; Status DC Sodium Chloride 1,000 ml @ 1,000 mls/hr 1X ONCE IV Last administered on at 20:24; Start 02/10/18 at 20:15; Stop 02/10/18 at 21:14; Status DC Morphine Sulfate (Morphine Sulfate) 4 mg 1X ONCE IV Last administered on at 20:25; Start 02/10/18 at 20:15; Stop 02/10/18 at 20:21; Status DC Ceftriaxone Sodium 50 ml @ 100 mls/hr 1X ONCE IV Last administered on at 21:47; Start 02/10/18 at 21:30; Stop 02/10/18 at 21:59; Status DC Morphine Sulfate (Morphine Sulfate) 4 mg 1X ONCE IV Last administered on at 21:51; Start 02/10/18 at 21:30; Stop 02/10/18 at 21:31; Status DC Ketorolac Tromethamine (Toradol) 30 mg 1X ONCE IV Last administered on at 22:15; Start 02/10/18 at 22:15; Stop 02/10/18 at 22:16; Status DC Ondansetron HCl (Zofran) 4 mg PRN Q8HRS PRN IV NAUSEA/VOMITING; Start 02/10/18 at 22:30; Stop 02/11/18 at 10:48; Status DC Morphine Sulfate (Morphine Sulfate) 4 mg PRN Q2HR PRN IV PAIN Last administered on 02/11/18at 08:18; Start 02/10/18 at 22:30; Stop 02/11/18 at 10:48 ; Status DC Sodium Chloride 1,000 ml @ 100 mls/hr Q10H IV Last administered on 02/13/18at 20:35; Start 02/11/18 at 00:30 Acetaminophen (Tylenol) 650 mg PRN Q6HRS PRN PO FEVER Last administered on 02/13at 14:23; Start 02/11/18 at 10:45 Ondansetron HCl (Zofran) 4 mg PRN Q6HRS PRN IV NAUSEA/VOMITING Last administered on 02/14/18 06:26; Start 02/11/18 at 10:45 Morphine Sulfate (Morphine Sulfate) 2 mg PRN Q2HR PRN IV MODERATE TO SEVERE PAIN Last administered on 02/11/18at 19:47; Start 02/11/18 at 10:45; Stop at 09:54; Status DC Tramadol HCl (Ultram) 50 mg PRN Q6HRS PRN PO MILD PAIN Last administered on at 22:28; Start 02/11/18 at 10:45 Hydralazine HCl (Apresoline Inj) 10 mg PRN Q4HRS PRN IVP ELEVATED BP, SEE COMMENTS; Start 02/11/18 at 10:45 Docusate Sodium (Colace) 100 mg PRN DAILY PRN PO CONSTIPATION Last administered on 02/13/18at 08:09; Start 02/11/18 at 10:45 Ceftriaxone Sodium 1 gm/ Dextrose 50 ml @ 100 mls/hr Q24H IV ; Start 02/11/18 at 10:45; Status UNV Ceftriaxone Sodium (Rocephin) 1 gm Q24H IVP Last administered on 02/13/18at 20: 36; Start 02/11/18 at 21:00 Enoxaparin Sodium (Lovenox 40mg Syringe) 40 mg Q24H SQ Last administered on 06/20at 17:01; Start 02/11/18 at 16:00; Stop 02/14/18 at 11:08; Status DC Acetaminophen/ Hydrocodone Bitart (Lortab 5/325) 1 tab PRN Q4HRS PRN PO SEVERE PAIN Last administered on 02/13/18at 08:09; Start 02/12/18 at 09:45; Stop at 09:51; Status DC Potassium Chloride (Klor-Con) 40 meq 1X ONCE PO Last administered on at 13:31; Start 02/12/18 at 13:00; Stop 02/12/18 at 13:01; Status DC Lactobacillus Rhamnosus (Culturelle) 1 cap BID PO Last administered on at 08:44; Start 02/12/18 at 21:00 Acetaminophen/ Hydrocodone Bitart (Lortab 10/325) 1 tab PRN Q6HRS PRN PO MODERATE TO SEVERE PAIN Last administered on 02/14/18at 08:44; Start 02/13/18 at 10:00 Fentanyl Citrate (Fentanyl 2ml Vial) 50 mcg PRN Q2HR PRN IV PAIN Last administered on 02/13/18at 15:05; Start 02/13/18 at 10:00; Stop 02/13/18 at 15:29 ; Status DC Morphine Sulfate (Morphine Sulfate) 2 mg PRN Q2HR PRN IV PAIN Last administered on 02/14/18at 06:26; Start 02/13/18 at 15:30 Vitals/I & O Vital Sign - Last 24 Hours 02/13/18 02/13/18 02/13/18 02/13/18 13:20 15:00 15:05 16:27 Temp 98.2 98.2 Pulse 74 69 Resp 16 B/P (MAP) 98/56 (70) 107/71 (83) Pulse Ox 100 O2 Delivery Room Air Room Air Room Air 02/13/18 02/13/18 02/13/18 02/13/18 19:00 20:00 22:28 23:00 Temp 98.6 97.9 98.6 97.9 Pulse 79 67 Resp 16 16 B/P (MAP) 90/60 (70) 100/62 (75) Pulse Ox 99 97 O2 Delivery Room Air Room Air Room Air Room Air 02/13/18 02/14/18 02/14/18 02/14/18 23:28 03:00 06:26 07:15 Temp 97.7 97.6 97.7 97.6 Pulse 67 79 Resp 16 18 B/P (MAP) 101/63 (76) 108/58 (75) Pulse Ox 97 96 O2 Delivery Room Air Room Air Room Air Room Air 02/14/18 02/14/18 08:00 11:10 Temp 98.3 98.3 Pulse 60 Resp 20 B/P (MAP) 96/59 (71) Pulse Ox 97 O2 Delivery Room Air Room Air Intake and Output 02/13/18 02/13/18 02/14/18 15:00 23:00 07:00 Intake Total 0 ml 0 ml Balance 0 ml 0 ml MARIA ESTHER DEMPSEY MD Feb 14, 2018 12:07
[2018-02-14] MEDS: DOCUSATE SODIUM 100 MG CAPSULE. PO PRN (12:14)
[2018-02-14] MEDS: traMADol 50 MG TABLET PO PRN (12:15)
[2018-02-14] MEDS: IV NORMAL SALINE 1000ML BAG 1,000 ML IV SCH (12:16)
[2018-02-14 15:04] VITALS: BP 103/72
[2018-02-14] MEDS ORDERED: CIPR500T94 PO (15:18)
--- NOTE | 2018-02-14 15:21 | PDOC3 ---
Discharge Summary Visit Information Date of Admission: Feb 10, 2018 Date of Discharge: Feb 14, 2018 Admitting Diagnosis Comment: Punctuate nephrolithiasis Pyelonephritis Escherichia coli UTI Sepsis POA hypokalemia, replaced Final Diagnosis Problems Medical Problems: (1) Acute pyelonephritis Status: Acute Brief Hospital Course Allergies Allergies Coded Allergies Type Severity Reaction Last Updated Verified No Known Drug Allergies 07/14/15 No Vital Signs Vital Signs Date Time Temp Pulse Resp B/P (MAP) Pulse Ox O2 Delivery O2 Flow Rate FiO2 02/14/18 11:10 98.3 60 20 96/59 (71) 97 Room Air 98.3 Lab Results Laboratory Tests Test 02/13/18 03:10 02/13/18 03:20 02/14/18 03:25 02/14/18 10:00 Sodium Level 138 mmol/L (136-145) 137 mmol/L (136-145) Potassium Level 3.6 mmol/L (3.5-5.1) 3.8 mmol/L (3.5-5.1) Chloride Level 107 mmol/L (98-107) 106 mmol/L (98-107) Carbon Dioxide Level 24 mmol/L (21-32) 26 mmol/L (21-32) Anion Gap 7 (6-14) 5 (6-14) Blood Urea Nitrogen 4 mg/dL (7-20) 4 mg/dL (7-20) Creatinine 0.5 mg/dL (0.6-1.0) 0.6 mg/dL (0.6-1.0) Estimated GFR (Cockcroft-Gault) 143.0 115.9 Glucose Level 101 mg/dL (70-99) 81 mg/dL (70-99) Calcium Level 8.3 mg/dL (8.5-10.1) 8.5 mg/dL (8.5-10.1) White Blood Count 7.9 x10^3/uL (4.0-11.0) 8.6 x10^3/uL (4.0-11.0) Red Blood Count 3.93 x10^6/uL (3.50-5.40) 4.04 x10^6/uL (3.50-5.40) Hemoglobin 12.0 g/dL (12.0-15.5) 12.2 g/dL (12.0-15.5) Hematocrit 34.5 % (36.0-47.0) 35.1 % (36.0-47.0) Mean Corpuscular Volume 88 fL (79-100) 87 fL (79-100) Mean Corpuscular Hemoglobin 30 pg (25-35) 30 pg (25-35) Mean Corpuscular Hemoglobin Concent 35 g/dL (31-37) 35 g/dL (31-37) Red Cell Distribution Width 13.6 % (11.5-14.5) 13.9 % (11.5-14.5) Platelet Count 153 x10^3/uL (140-400) 197 x10^3/uL (140-400) Neutrophils (%) (Auto) 59 % (31-73) 62 % (31-73) Lymphocytes (%) (Auto) 32 % (24-48) 29 % (24-48) Monocytes (%) (Auto) 8 % (0-9) 7 % (0-9) Eosinophils (%) (Auto) 2 % (0-3) 2 % (0-3) Basophils (%) (Auto) 0 % (0-3) 0 % (0-3) Neutrophils # (Auto) 4.6 x10^3uL (1.8-7.7) 5.3 x10^3uL (1.8-7.7) Lymphocytes # (Auto) 2.5 x10^3/uL (1.0-4.8) 2.5 x10^3/uL (1.0-4.8) Monocytes # (Auto) 0.6 x10^3/uL (0.0-1.1) 0.6 x10^3/uL (0.0-1.1) Eosinophils # (Auto) 0.1 x10^3/uL (0.0-0.7) 0.1 x10^3/uL (0.0-0.7) Basophils # (Auto) 0.0 x10^3/uL (0.0-0.2) 0.0 x10^3/uL (0.0-0.2) Erythrocyte Sedimentation Rate 15 (0-25) BUN/Creatinine Ratio 7 (6-20) Total Bilirubin 0.3 mg/dL (0.2-1.0) Aspartate Amino Transf (AST/SGOT) 32 U/L (15-37) Alanine Aminotransferase (ALT/SGPT) 35 U/L (14-59) Alkaline Phosphatase 70 U/L (46-116) Total Protein 6.2 g/dL (6.4-8.2) Albumin 2.8 g/dL (3.4-5.0) Albumin/Globulin Ratio 0.8 (1.0-1.7) Urine Collection Type Clean catch Urine Color Yellow Urine Clarity Clear Urine pH 7.5 Urine Specific [place] <=1.005 Urine Protein Negative mg/dL (NEG-TRACE) Urine Glucose (UA) Negative mg/dL (NEG) Urine Ketones (Stick) Negative mg/dL (NEG) Urine Blood Negative (NEG) Urine Nitrite Negative (NEG) Urine Bilirubin Negative (NEG) Urine Urobilinogen Dipstick 0.2 mg/dL (0.2 mg/dL) Urine Leukocyte Esterase Negative (NEG) Urine RBC Occ /HPF (0-2) Urine WBC 1-4 /HPF (0-4) Urine Squamous Epithelial Cells Mod /LPF Urine Bacteria Few /HPF (0-FEW) Urine Mucus Slight /LPF Laboratory Tests Test 02/14/18 03:25 02/14/18 10:00 White Blood Count 8.6 x10^3/uL (4.0-11.0) Red Blood Count 4.04 x10^6/uL (3.50-5.40) Hemoglobin 12.2 g/dL (12.0-15.5) Hematocrit 35.1 % (36.0-47.0) Mean Corpuscular Volume 87 fL (79-100) Mean Corpuscular Hemoglobin 30 pg (25-35) Mean Corpuscular Hemoglobin Concent 35 g/dL (31-37) Red Cell Distribution Width 13.9 % (11.5-14.5) Platelet Count 197 x10^3/uL (140-400) Neutrophils (%) (Auto) 62 % (31-73) Lymphocytes (%) (Auto) 29 % (24-48) Monocytes (%) (Auto) 7 % (0-9) Eosinophils (%) (Auto) 2 % (0-3) Basophils (%) (Auto) 0 % (0-3) Neutrophils # (Auto) 5.3 x10^3uL (1.8-7.7) Lymphocytes # (Auto) 2.5 x10^3/uL (1.0-4.8) Monocytes # (Auto) 0.6 x10^3/uL (0.0-1.1) Eosinophils # (Auto) 0.1 x10^3/uL (0.0-0.7) Basophils # (Auto) 0.0 x10^3/uL (0.0-0.2) Erythrocyte Sedimentation Rate 15 (0-25) Sodium Level 137 mmol/L (136-145) Potassium Level 3.8 mmol/L (3.5-5.1) Chloride Level 106 mmol/L (98-107) Carbon Dioxide Level 26 mmol/L (21-32) Anion Gap 5 (6-14) Blood Urea Nitrogen 4 mg/dL (7-20) Creatinine 0.6 mg/dL (0.6-1.0) Estimated GFR (Cockcroft-Gault) 115.9 BUN/Creatinine Ratio 7 (6-20) Glucose Level 81 mg/dL (70-99) Calcium Level 8.5 mg/dL (8.5-10.1) Total Bilirubin 0.3 mg/dL (0.2-1.0) Aspartate Amino Transf (AST/SGOT) 32 U/L (15-37) Alanine Aminotransferase (ALT/SGPT) 35 U/L (14-59) Alkaline Phosphatase 70 U/L (46-116) Total Protein 6.2 g/dL (6.4-8.2) Albumin 2.8 g/dL (3.4-5.0) Albumin/Globulin Ratio 0.8 (1.0-1.7) Urine Collection Type Clean catch Urine Color Yellow Urine Clarity Clear Urine pH 7.5 Urine Specific [place] <=1.005 Urine Protein Negative mg/dL (NEG-TRACE) Urine Glucose (UA) Negative mg/dL (NEG) Urine Ketones (Stick) Negative mg/dL (NEG) Urine Blood Negative (NEG) Urine Nitrite Negative (NEG) Urine Bilirubin Negative (NEG) Urine Urobilinogen Dipstick 0.2 mg/dL (0.2 mg/dL) Urine Leukocyte Esterase Negative (NEG) Urine RBC Occ /HPF (0-2) Urine WBC 1-4 /HPF (0-4) Urine Squamous Epithelial Cells Mod /LPF Urine Bacteria Few /HPF (0-FEW) Urine Mucus Slight /LPF Brief Hospital Course Ms. Knapp is a 32 old F admitted and treated for pyelo but pain was not controlled, VERY SMALL puncutate stone on KUB< non surgical per urology. I think the pt's pain threshold was just low, so took some days and some consults needed to figure out why she was in so much RUQ pain, NO GB pathlogy on tests, To go home today CIPRO 500 BID x 14 days, Urine cx and sensitiviteis out, e coli uti sensitive to cipro and pcn but resistant to bactrim dw rn mya 2 notes today Discharge Information Condition at Discharge: Improved, Stable Disposition/Orders: D/C to Home MARIA ESTHER DEMPSEY MD Feb 14, 2018 15:21
== END 2018-02-14 16:33 | disposition home or self-care (01) | DRG 872 ==
LOC: ER 19:17 → 4 NORTH 22:26
PROVIDERS: ADMIT Internal Medicine; ATTEND Internal Medicine
DX: A41.9 Sepsis, unspecified organism (principal); N10 Acute pyelonephritis; B96.20 Unspecified Escherichia coli [E. coli] as the cause of diseases classified elsewhere; E87.6 Hypokalemia; K82.8 Other specified diseases of gallbladder; N20.0 Calculus of kidney; Z82.49 Family history of ischemic heart disease and other diseases of the circulatory system
CPT/HCPCS: 36415; 74018; 74176; 76705; 80048; 80053; 81001; 81025; 85007; 85025; 85651; 87086; 87186; 93970; 96365; 96366; 96375; J0690; J0696; J1650; J1885; J2270; J2405; J3010; J7030; 99285-25